=== PATIENT | male | born 1960 | race Caucasian/White ===

== ENCOUNTER 2018-05-13 11:07 | Inpatient (IN) | payer OTHER ==
[2018-05-13 13:11] VITALS: BMI 36.0
--- NOTE | 2018-05-13 17:19 | HP ---
CIWA Score - CIWA Score Nausea/Vomitin-Mild Nausea/No Vomiting Muscle Tremors: 3 Anxiety: 2 Agitation: 1-Slight > Activity Paroxysmal Sweats: 1-Minimal Palms Moist Orientation: 1-Uncertain about Date Tacttile Disturbances: 0-None Auditory Disturbances: 1-Very Mild Visual Disturbances: 1-Very Mild Sensitivity Headache: 1-Very Mild CIWA-Ar Total Score: 12 Admission ROS S - HPI Chief Complaint: WITHDRAWAL SYMPTOMS Allergies/Adverse Reactions: Allergies Allergy/AdvReac Type Severity Reaction Status Date / Time No Known Drug Allergies Allergy Verified 05/13/18 15:36 History of Present Illness: 57 Y.O. MAN WITH AN EXTENSIVE HISTORY OF ALCOHOL AND AMPHETAMINE DEPENDENCE IS HERE SEEKING DETOX. HIS LAST ADMISSION FOR DETOX WAS IN 2012. LONGEST PERIOD OF SOBRIETY HAS BEEN 1 YEAR. Exam Limitations: No Limitations - Ebola screening Have you traveled outside of the country in the last 21 days: No Have you had contact with anyone from an Ebola affected area: No Have you been sick,other than usual withdrawal symptoms: No Do you have a fever: No - Review of Systems Constitutional: Loss of Appetite, Night Sweats EENT: reports: No Symptoms Reported Respiratory: reports: No Symptoms reported Cardiac: reports: No Symptoms Reported GI: reports: No Symptoms Reported : reports: No Symptoms Reported Musculoskeletal: reports: No Symptoms Reported Integumentary: reports: No Symptoms Reported Neuro: reports: Tremors Endocrine: reports: No Symptoms Reported Hematology: reports: No Symptoms Reported Psychiatric: reports: Mood/Affect Appropiate, Depressed Other Systems: Reviewed and Negative Patient History - Patient Medical History Hx Anemia: No Hx Asthma: No Hx Chronic Obstructive Pulmonary Disease (COPD): No Hx Cancer: No Hx Cardiac Disorders: Yes (stent x3) Hx Congestive Heart Failure: No Hx Hypertension: Yes Hx Hypercholesterolemia: Yes Hx Pacemaker: No HX Cerebrovascular Accident: No Hx Seizures: No Hx Dementia: No Hx Diabetes: No Hx Gastrointestinal Disorders: No Hx Liver Disease: No Hx Genitourinary Disorders: No Hx Sexually Transmitted Disorders: No Hx Renal Disease (ESRD): No Hx Thyroid Disease: No Hx Human Immunodeficiency Virus (HIV): No Hx Hepatitis C: No Hx Depression: Yes Hx Suicide Attempt: No Hx Bipolar Disorder: Yes Hx Schizophrenia: No - Patient Surgical History Past Surgical History: Yes Hx Neurologic Surgery: No Hx Cataract Extraction: No Hx Cardiac Surgery: Yes (cardiac cath-3 stents) Hx Lung Surgery: No Hx Breast Surgery: No Hx Breast Biopsy: No Hx Abdominal Surgery: No Hx Appendectomy: No Hx Cholecystectomy: No Hx Genitourinary Surgery: No Hx Section: No Hx Orthopedic Surgery: No Anesthesia Reaction: No - PPD History Previous Implant?: Yes Documented Results: Negative w/proof Implanted On Prior [facility] Admission?: Yes Date: 01/31/13 Results: 0 mm PPD to be Administered?: Yes - Reproductive History Patient is a Female of Child Bearing Age (11 -55 yrs old): No - Smoking Cessation Smoking history: Never smoked Have you smoked in the past 12 months: No Hx Chewing Tobacco Use: No Initiated information on smoking cessation: No - Substance & Tx. History Hx Alcohol Use: Yes Hx Substance Use: Yes Substance Use Type: Alcohol Hx Substance Use Treatment: Yes (DETOX: 2013) - Substances Abused Alcohol-rum/beer Route: Oral Frequency: Daily Amount used: 2-3 pts./1-2 6 pks. Age of first use: 22 Date of Last Use: 05/13/18 Crystal meth Route: Smoking Frequency: 1-3 times last 30 days Amount used: $300 Age of first use: 56 Date of Last Use: 05/12/18 Family Disease History - Family Disease History Family Disease History: Heart Disease: Mother ( ), Other: Father (ETOH DEPENDENCE: ) Admission Physical Exam S - Vital Signs Vital Signs: Vital Signs - 24 hr 05/13/18 13:09 Temperature 97.6 F Pulse Rate 84 Respiratory 20 Rate Blood Pressure 139/82 - Physical General Appearance: Yes: Disheveled, Obese, Tremorous HEENTM: Yes: Hearing grossly Normal, Normocephalic, Normal Voice Respiratory: Yes: Chest Non-Tender, Lungs Clear, Normal Breath Sounds, No Respiratory Distress, No Accessory Muscle Use Neck: Yes: No masses,lesions,Nodules, Trachea in good position Breast: Yes: Breast Exam Deferred Cardiology: Yes: Regular Rhythm, Regular Rate Abdominal: Yes: Normal Bowel Sounds, Non Tender Genitourinary: Yes: Other (NO COMPLAINTS REPORTED) Back: Yes: Normal Inspection Musculoskeletal: Yes: full range of Motion, Gait Steady Extremities: Yes: Normal Capillary Refill, Normal Inspection, Normal Range of Motion, Non-Tender Neurological: Yes: Alert, Normal Mood/Affect, Normal Response Integumentary: Yes: Normal Color, Dry, Warm Lymphatic: Yes: Within Normal Limits - Diagnostic (1) Hypertension Current Visit: Yes Status: Chronic (2) Uncomplicated alcohol dependence Current Visit: Yes Status: Chronic (3) Amphetamine abuse Current Visit: Yes Status: Chronic (4) Coronary arteriosclerosis Current Visit: Yes Status: Acute (5) Hypercholesterolemia Current Visit: Yes Status: Chronic Cleared for Admission [facility] - Detox or Rehab [facility] Level of Care: Medically Managed Detox Regimen/Protocol: Librium [facility] Breath Alcohol Content Breath Alcohol Content: 0 Urine Drug Screen - Results Drug Screen Negative: No Urine Drug Screen Results: AMP-Amphetamines, MET-Methamphetamine, BZO- Benzodiazepines
[2018-05-13] MEDS ORDERED: chlordiazePOXIDE HCL 25 MG CAPSULE PO PRN (17:28)
[2018-05-13] MEDS ORDERED: MAGNESIUM CITRATE 300 ML BOTTLE PO PRN (17:28)
[2018-05-13] MEDS ORDERED: MAG HYDROX/AL HYDROX/SIMETH 30 ML UNIT-DOSE CUP PO PRN (17:28)
[2018-05-13] MEDS ORDERED: P-EPHED 60MG/TRIPROLIDI 2.5MG TABLET PO PRN (17:28)
[2018-05-13] MEDS ORDERED: ACETAMINOPHEN 325 MG TABLET (FP) PO PRN (17:28)
[2018-05-13] MEDS ORDERED: guaiFENesin/D-METHORPHAN HB 10 ML UNIT-DOSE CUPS PO PRN (17:28)
[2018-05-13] MEDS ORDERED: LOPERAMIDE HCL 2 MG CAPSULE PO PRN (17:28)
[2018-05-13] MEDS ORDERED: MAGNESIUM HYDROX 2400MG/30ML ORAL SUSPENSION 30 ML CUP PO PRN (17:28)
[2018-05-13] MEDS ORDERED: MENTHOL/PHENOL 1 EACH UD MM PRN (17:28)
[2018-05-13] MEDS ORDERED: chlordiazePOXIDE HCL 25 MG CAPSULE PO ONE (18:00)
[2018-05-13] MEDS: amLODIPine BESYLATE 5 MG TABLET (FP) PO SCH (19:14)
[2018-05-13] MEDS: ATORVASTATIN CA 40 MG TABLET (FP) PO SCH (22:22)
[2018-05-13] MEDS: THIAMINE HCL 100 MG TABLET (FP) PO SCH (22:22)
[2018-05-13] MEDS: chlordiazePOXIDE HCL 25 MG CAPSULE PO SCH (22:22)
[2018-05-14 03:05] LABS: URINE APPEARANCE TURBID; URINE BILIRUBIN NEGATIVE (<2.0 mg/dL); URINE COLOR YELLOW; URINE GLUCOSE (UA) NEGATIVE (NEGATIVE); URINE KETONE 1+ (NEGATIVE); URINE LEUK ESTERASE NEGATIVE (NEGATIVE); URINE NITRITE NEGATIVE (NEGATIVE)
[2018-05-14 03:09] LABS: URINE PROTEIN 2+ (NEGATIVE)
[2018-05-14 03:16] LABS: URINE BACTERIA MODERATE /hpf (NONE SEEN); URINE MUCUS RARE
[2018-05-14] MEDS: chlordiazePOXIDE HCL 25 MG CAPSULE PO SCH ×4 (05:43→22:27)
[2018-05-14] MEDS: IBUPROFEN 400 MG TABLET (FP) PO PRN ×2 (05:44→22:27)
[2018-05-14] MEDS: PRENATAL VITAMINS W/ FOLIC ACID TABLET (FP) PO SCH (10:24)
[2018-05-14] MEDS: amLODIPine BESYLATE 5 MG TABLET (FP) PO SCH (10:24)
[2018-05-14] MEDS: ASPIRIN COATED 81 MG TABLET.EC PO SCH (10:24)
--- NOTE | 2018-05-14 10:30 | EKG ---
Test Reason : Blood Pressure : / mmHG Vent. Rate : 066 BPM Atrial Rate : 066 BPM P-R Int : 138 ms QRS Dur : 110 ms QT Int : 402 ms P-R-T Axes : 025 -68 239 degrees QTc Int : 421 ms NORMAL SINUS RHYTHM WITH SINUS ARRHYTHMIA LEFT ANTERIOR FASCICULAR BLOCK POSSIBLE ANTERIOR INFARCT , AGE UNDETERMINED ABNORMAL ECG NO PREVIOUS ECGS AVAILABLE Confirmed by EAMON LANG MD ([id number]) on 05/14/2018 10:29:45 AM Referred By: Confirmed By:EAMON LANG MD
[2018-05-14 10:50] LABS: HEMATOCRIT 44.2 % (35.4-49); HEMOGLOBIN 14.7 GM/dL (11.7-16.9); MCH 27.9 pg (25.7-33.7); MCHC 33.3 g/dl (32.0-35.9); MEAN CELL VOLUME 83.7 fl (80-96); MEAN PLT VOLUME 9.8 fl (7.5-11.1); PLATELET COUNT 206 K/MM3 (134-434); RBC 5.28 M/mm3 (4.00-5.60); RDW 15.4 % (11.9-15.9); WHITE BLOOD COUNT 7.1 K/mm3 (4.0-10.0)
[2018-05-14 11:27] LABS: ALBUMIN 3.3 g/dl (3.4-5.0); ANION GAP 11 (8-16); BLOOD UREA NITROGEN 15 mg/dL (7-18); CALCIUM 8.4 mg/dL (8.5-10.1); CHLORIDE 103 mmol/L (98-107); CO2 30 mmol/L (21-32); CREATININE 0.8 mg/dL (0.7-1.3); GLUCOSE,RANDOM 79 mg/dL (74-106); POTASSIUM 3.4 mmol/L (3.5-5.1); SGOT/AST 38 U/L (15-37); SGPT/ALT 42 U/L (12-78); SODIUM 144 mmol/L (136-145)
[2018-05-14 11:28] LABS: ALK PHOS 73 U/L (45-117); BILIRUBIN,TOTAL 0.5 mg/dL (0.2-1.0); TOT PROT 6.8 g/dl (6.4-8.2)
--- NOTE | 2018-05-14 11:59 | PN ---
S CIWA - CIWA Score Nausea/Vomitin-No Nausea/No Vomiting Muscle Tremors: 4-Moderate,w/Arms Extend Anxiety: 4-Mod. Anxious/Guarded Agitation: 4-Moderately Restless Paroxysmal Sweats: 1-Minimal Palms Moist Orientation: 0-Oriented Tacttile Disturbances: 0-None Auditory Disturbances: 0-None Visual Disturbances: 0-None Headache: 0-None Present CIWA-Ar Total Score: 13 BHS Progress Note (SOAP) Subjective: ANXIETY,SWEATS,TREMORS," BODY HURTS", INTERMITTENT SLEEP. Objective: 05/14/18 11:57 Vital Signs 05/14/18 05/14/18 06:23 09:32 Temperature 96.7 F L 97.4 F L Pulse Rate 53 L 84 Respiratory 18 20 Rate Blood Pressure 112/67 137/86 Laboratory Tests 05/13/18 05/14/18 05/14/18 22:30 07:30 07:30 WBC 7.1 RBC 5.28 Hgb 14.7 Hct 44.2 MCV 83.7 MCH 27.9 D MCHC 33.3 RDW 15.4 Plt Count 206 MPV 9.8 Sodium 144 Potassium 3.4 L Chloride 103 Carbon Dioxide 30 Anion Gap 11 BUN 15 Creatinine 0.8 Creat Clearance w eGFR > 60 Random Glucose 79 D Calcium 8.4 L Total Bilirubin 0.5 AST 38 H ALT 42 Alkaline Phosphatase 73 Total Protein 6.8 Albumin 3.3 L Urine Color Yellow Urine Appearance Turbid Urine pH 5.0 Ur Specific [place] 1.026 Urine Protein 2+ H Urine Glucose (UA) Negative Urine Ketones 1+ H Urine Blood Negative Urine Nitrite Negative Urine Bilirubin Negative Urine Urobilinogen 2.0 Ur Leukocyte Esterase Negative Urine WBC (Auto) 60 Urine RBC (Auto) None Urine Bacteria Moderate Urine Mucus Rare K+ =3.4 UA NOTED Assessment: 05/14/18 11:58 WITHDRAWAL SX Plan: CONTINUE DETOX MOTRIN FOR BODY ACHES INCREASE PO FLUIDS REPEAT UA: UC TODAY
[2018-05-14] MEDS ORDERED: POTASSIUM CHLORIDE ORAL LIQUID 20 MEQ/15 ML PO ONE (12:07)
--- NOTE | 2018-05-14 12:28 | CONSULT ---
[facility] Psychiatric Consult - Data Date of interview: 05/14/18 Admission source: [facility] Identifying data: Patient is a 57 year old male, , father of two, currently living with a friend, and is supported by [facility]. This is patient's first admission to detox at [facility]. Pt. admitted to for alcohol and amphetamine depenedence. Substance Abuse History: Smoking Cessation. Smoking history: Never smoked. Have you smoked in the past 12 months: No. Hx Chewing Tobacco Use: No. Initiated information on smoking cessation: No. - Substance & Tx. History. Hx Alcohol Use: Yes. Hx Substance Use: Yes. Substance Use Type: Alcohol. Hx Substance Use Treatment: Yes (DETOX: 2013). - Substances Abused. Alcohol- rum/beer. Route: Oral. Frequency: Daily. Amount used: 2-3 pts./1-2 6 pks. Age of first use: 22. Date of Last Use: 05/13/18. Crystal meth. Route: Smoking. Frequency: 1-3 times last 30 days. Amount used: $300. Age of first use: 56. Date of Last Use: 05/12/18 Medical History: cardiac cath-3 stents Psychiatric History: Patient reports multiple psychiatric hospitalizations, most recently 1.5 years ago at [facility] for depression. Pt. is also known to [facility]. Pt. reports many deaths in his family(2 brothers, father and mother) which has contributed to his depression. Pt. denies h/o OPD. States while hospitalized at [facility] he was prescribed zoloft (unknown dose) although has not accepted psychotrophic medications in approximately 6-8 months. Pt. denies h/o suicide attempt. Physical/Sexual Abuse/Trauma History: Denies. Mental Status Exam - Mental Status Exam Alert and Oriented to: Time, Place, Person Cognitive Function: Good Patient Appearance: Well Groomed Mood: Hopeful, Euthymic Affect: Mood Congruent Patient Behavior: Appropriate, Cooperative Speech Pattern: Appropriate Voice Loudness: Normal Thought Process: Intact, Goal Oriented Thought Disorder: Not Present Hallucinations: Denies Suicidal Ideation: Denies Homicidal Ideation: Denies Insight/Judgement: Poor Sleep: Fair Appetite: Fair Muscle strength/Tone: Normal Gait/Station: Normal Psychiatric Findings - Problem List ([place] 1, 2,3) (1) Alcohol dependence Current Visit: Yes Status: Acute (2) Substance induced mood disorder Current Visit: Yes Status: Acute (3) Amphetamine abuse Current Visit: Yes Status: Chronic - Initial Treatment Plan Initial Treatment Plan: Psychoeducation provided. Detoxification in progress. Observation.
[2018-05-14 19:33] LABS: URINE APPEARANCE SLCLOUDY; URINE BILIRUBIN NEGATIVE (<2.0 mg/dL); URINE COLOR YELLOW; URINE GLUCOSE (UA) NEGATIVE (NEGATIVE); URINE KETONE NEGATIVE (NEGATIVE); URINE LEUK ESTERASE NEGATIVE (NEGATIVE); URINE NITRITE NEGATIVE (NEGATIVE); URINE PROTEIN NEGATIVE (NEGATIVE); URINE UROBILINOGEN NEGATIVE mg/dL (0.2-1.0)
[2018-05-14] MEDS: ATORVASTATIN CA 40 MG TABLET (FP) PO SCH (22:27)
[2018-05-14] MEDS: POTASSIUM CHLORIDE ORAL LIQUID 20 MEQ/15 ML PO SCH (22:27)
[2018-05-14] MEDS: THIAMINE HCL 100 MG TABLET (FP) PO SCH (22:27)
[2018-05-15] MEDS: chlordiazePOXIDE HCL 25 MG CAPSULE PO SCH ×2 (05:12→10:37)
[2018-05-15] MEDS: IBUPROFEN 400 MG TABLET (FP) PO PRN (05:12)
[2018-05-15] MEDS: PRENATAL VITAMINS W/ FOLIC ACID TABLET (FP) PO SCH (10:37)
[2018-05-15] MEDS: POTASSIUM CHLORIDE ORAL LIQUID 20 MEQ/15 ML PO SCH ×2 (10:37→22:33)
[2018-05-15] MEDS: amLODIPine BESYLATE 5 MG TABLET (FP) PO SCH (10:37)
[2018-05-15] MEDS: ASPIRIN COATED 81 MG TABLET.EC PO SCH (10:37)
--- NOTE | 2018-05-15 12:11 | PN ---
[facility] CIWA - CIWA Score Nausea/Vomitin-No Nausea/No Vomiting Muscle Tremors: 4-Moderate,w/Arms Extend Anxiety: 4-Mod. Anxious/Guarded Agitation: 4-Moderately Restless Paroxysmal Sweats: 1-Minimal Palms Moist Orientation: 0-Oriented Tacttile Disturbances: 0-None Auditory Disturbances: 0-None Visual Disturbances: 0-None Headache: 0-None Present CIWA-Ar Total Score: 13 S Progress Note (SOAP) Subjective: PT SEEN IN LAYING IN BED, ANXIETY, FATIGUE. NAD. Objective: 05/15/18 12:09 Vital Signs 05/15/18 05/15/18 05/15/18 06:06 06:30 09:21 Temperature 97.2 F L 97 F L Pulse Rate 69 97 H Respiratory 18 18 18 Rate Blood Pressure 112/61 132/85 Laboratory Tests 05/13/18 05/14/18 05/14/18 22:30 07:30 07:30 WBC 7.1 RBC 5.28 Hgb 14.7 Hct 44.2 MCV 83.7 MCH 27.9 D MCHC 33.3 RDW 15.4 Plt Count 206 MPV 9.8 Sodium 144 Potassium 3.4 L Chloride 103 Carbon Dioxide 30 Anion Gap 11 BUN 15 Creatinine 0.8 Creat Clearance w eGFR > 60 Random Glucose 79 D Calcium 8.4 L Total Bilirubin 0.5 AST 38 H ALT 42 Alkaline Phosphatase 73 Total Protein 6.8 Albumin 3.3 L Urine Color Yellow Urine Appearance Turbid Urine pH 5.0 Ur Specific [place] 1.026 Urine Protein 2+ H Urine Glucose (UA) Negative Urine Ketones 1+ H Urine Blood Negative Urine Nitrite Negative Urine Bilirubin Negative Urine Urobilinogen 2.0 Ur Leukocyte Esterase Negative Urine WBC (Auto) 60 Urine RBC (Auto) None Urine Bacteria Moderate Urine Mucus Rare RPR Titer 05/14/18 05/14/18 07:30 15:33 WBC RBC Hgb Hct MCV MCH MCHC RDW Plt Count MPV Sodium Potassium Chloride Carbon Dioxide Anion Gap BUN Creatinine Creat Clearance w eGFR Random Glucose Calcium Total Bilirubin AST ALT Alkaline Phosphatase Total Protein Albumin Urine Color Yellow Urine Appearance Slcloudy Urine pH 5.0 Ur Specific [place] 1.014 Urine Protein Negative Urine Glucose (UA) Negative Urine Ketones Negative Urine Blood Negative Urine Nitrite Negative Urine Bilirubin Negative Urine Urobilinogen Negative Ur Leukocyte Esterase Negative Urine WBC (Auto) Urine RBC (Auto) Urine Bacteria Urine Mucus RPR Titer Nonreactive REPEAT UA WNL Assessment: 05/15/18 12:10 WITHDRAWAL SX Plan: CONTINUE DETOX UC RESULT PENDING
--- NOTE | 2018-05-15 16:50 | EKG ---
Test Reason : Blood Pressure : / mmHG Vent. Rate : 057 BPM Atrial Rate : 057 BPM P-R Int : 128 ms QRS Dur : 114 ms QT Int : 444 ms P-R-T Axes : 027 -70 -71 degrees QTc Int : 432 ms SINUS BRADYCARDIA WITH SINUS ARRHYTHMIA LEFT ANTERIOR FASCICULAR BLOCK POSSIBLE ANTERIOR INFARCT (CITED ON OR BEFORE 13-MAY-2018) T WAVE ABNORMALITY, CONSIDER INFERIOR ISCHEMIA ABNORMAL ECG WHEN COMPARED WITH ECG OF 13-MAY-2018 18:59, SERIAL CHANGES OF ANTERIOR INFARCT PRESENT Confirmed by YOVANY PINEDA MD ([id number]) on 05/15/2018 3:52:28 PM Referred By: Confirmed By:YOVANY PINEDA MD
[2018-05-15] MEDS: chlordiazePOXIDE 5 MG CAPSULE PO SCH ×2 (17:31→22:34)
[2018-05-15] MEDS ORDERED: ATORVASTATIN CA 20 MG TABLET (FP) ONE (21:32)
[2018-05-15] MEDS: ATORVASTATIN CA 40 MG TABLET (FP) PO SCH (22:34)
[2018-05-15] MEDS ORDERED: chlordiazePOXIDE 5 MG CAPSULE PO SCH (23:00)
[2018-05-15] MEDS: THIAMINE HCL 100 MG TABLET (FP) PO SCH (23:06)
[2018-05-16] MEDS: chlordiazePOXIDE HCL 10 MG CAPSULE PO SCH ×2 (05:40→10:39)
[2018-05-16] MEDS: POTASSIUM CHLORIDE ORAL LIQUID 20 MEQ/15 ML PO SCH ×2 (10:39→21:14)
[2018-05-16] MEDS: ASPIRIN COATED 81 MG TABLET.EC PO SCH (10:39)
[2018-05-16] MEDS: PRENATAL VITAMINS W/ FOLIC ACID TABLET (FP) PO SCH (10:39)
[2018-05-16] MEDS: amLODIPine BESYLATE 5 MG TABLET (FP) PO SCH (10:39)
[2018-05-16] MEDS ORDERED: chlordiazePOXIDE HCL 10 MG CAPSULE PO SCH ×2 (11:00→23:00)
--- NOTE | 2018-05-16 12:35 | PN ---
S Progress Note (SOAP) Subjective: DETOX COMPLETED. ALERT O X 3. NAD. PT STATES HE HAS PRIMARY CARE WITH [facility]. REFERRED TO REHAB TODAY AT [address] Objective: 05/16/18 12:33 Vital Signs 05/16/18 05/16/18 06:06 09:37 Temperature 97.1 F L 97.2 F L Pulse Rate 56 L 80 Respiratory 18 18 Rate Blood Pressure 124/76 131/91 Laboratory Tests 05/13/18 05/14/18 05/14/18 22:30 07:30 07:30 WBC 7.1 RBC 5.28 Hgb 14.7 Hct 44.2 MCV 83.7 MCH 27.9 D MCHC 33.3 RDW 15.4 Plt Count 206 MPV 9.8 Sodium 144 Potassium 3.4 L Chloride 103 Carbon Dioxide 30 Anion Gap 11 BUN 15 Creatinine 0.8 Creat Clearance w eGFR > 60 Random Glucose 79 D Calcium 8.4 L Total Bilirubin 0.5 AST 38 H ALT 42 Alkaline Phosphatase 73 Total Protein 6.8 Albumin 3.3 L Urine Color Yellow Urine Appearance Turbid Urine pH 5.0 Ur Specific [place] 1.026 Urine Protein 2+ H Urine Glucose (UA) Negative Urine Ketones 1+ H Urine Blood Negative Urine Nitrite Negative Urine Bilirubin Negative Urine Urobilinogen 2.0 Ur Leukocyte Esterase Negative Urine WBC (Auto) 60 Urine RBC (Auto) None Urine Bacteria Moderate Urine Mucus Rare RPR Titer 05/14/18 05/14/18 07:30 15:33 WBC RBC Hgb Hct MCV MCH MCHC RDW Plt Count MPV Sodium Potassium Chloride Carbon Dioxide Anion Gap BUN Creatinine Creat Clearance w eGFR Random Glucose Calcium Total Bilirubin AST ALT Alkaline Phosphatase Total Protein Albumin Urine Color Yellow Urine Appearance Slcloudy Urine pH 5.0 Ur Specific [place] 1.014 Urine Protein Negative Urine Glucose (UA) Negative Urine Ketones Negative Urine Blood Negative Urine Nitrite Negative Urine Bilirubin Negative Urine Urobilinogen Negative Ur Leukocyte Esterase Negative Urine WBC (Auto) Urine RBC (Auto) Urine Bacteria Urine Mucus RPR Titer Nonreactive Assessment: 05/16/18 12:33 MEDICALLY STABLE Plan: DIRECT TRANSFER TODAY TO REHAB.
--- NOTE | 2018-05-16 12:37 | DS ---
[facility] Detox Discharge Summary Admission Date: 05/13/18 Discharge Date: 05/16/18 - History Present History: Alcohol Dependence, Cocaine Dependence Additional Comments: DETOX COMPLETED. ALERT O X 3. NAD. FOLLOW UP WITH PCP AT [facility] NEEDED. Pertinent Past History: PLEASE SEE DX BELOW - Physical Exam Results Vital Signs: Vital Signs Temperature 97.2 F L 05/16/18 09:37 Pulse Rate 80 05/16/18 09:37 Respiratory Rate 18 05/16/18 09:37 Blood Pressure 131/91 05/16/18 09:37 O2 Sat by Pulse Oximetry (%) Pertinent Admission Physical Exam Findings: WITHDRAWAL SX Laboratory Tests 05/13/18 05/14/18 05/14/18 22:30 07:30 07:30 WBC 7.1 RBC 5.28 Hgb 14.7 Hct 44.2 MCV 83.7 MCH 27.9 D MCHC 33.3 RDW 15.4 Plt Count 206 MPV 9.8 Sodium 144 Potassium 3.4 L Chloride 103 Carbon Dioxide 30 Anion Gap 11 BUN 15 Creatinine 0.8 Creat Clearance w eGFR > 60 Random Glucose 79 D Calcium 8.4 L Total Bilirubin 0.5 AST 38 H ALT 42 Alkaline Phosphatase 73 Total Protein 6.8 Albumin 3.3 L Urine Color Yellow Urine Appearance Turbid Urine pH 5.0 Ur Specific [place] 1.026 Urine Protein 2+ H Urine Glucose (UA) Negative Urine Ketones 1+ H Urine Blood Negative Urine Nitrite Negative Urine Bilirubin Negative Urine Urobilinogen 2.0 Ur Leukocyte Esterase Negative Urine WBC (Auto) 60 Urine RBC (Auto) None Urine Bacteria Moderate Urine Mucus Rare RPR Titer 05/14/18 05/14/18 07:30 15:33 WBC RBC Hgb Hct MCV MCH MCHC RDW Plt Count MPV Sodium Potassium Chloride Carbon Dioxide Anion Gap BUN Creatinine Creat Clearance w eGFR Random Glucose Calcium Total Bilirubin AST ALT Alkaline Phosphatase Total Protein Albumin Urine Color Yellow Urine Appearance Slcloudy Urine pH 5.0 Ur Specific [place] 1.014 Urine Protein Negative Urine Glucose (UA) Negative Urine Ketones Negative Urine Blood Negative Urine Nitrite Negative Urine Bilirubin Negative Urine Urobilinogen Negative Ur Leukocyte Esterase Negative Urine WBC (Auto) Urine RBC (Auto) Urine Bacteria Urine Mucus RPR Titer Nonreactive Microbiology 05/14/18 15:33 Urine - Urine Clean Catch Urine Culture - Final NO GROWTH OBTAINED - Treatment Hospital Course: Detox Protocol Followed, Detoxed Safely, Responded well, Discharged Condition Good, Rehab Referral Accepted Patient has Accepted a Rehab Referral to: [address] - Medication Discharge Medications: Ambulatory Orders Amlodipine Besylate [Norvasc -] 5 mg PO DAILY 03/06/13 Aspirin Coated [Ecotrin -] 81 mg PO DAILY 03/06/13 Atorvastatin Ca [Lipitor] 40 mg PO HS 03/06/13 - Diagnosis (1) Coronary arteriosclerosis Current Visit: Yes Status: Chronic (2) Hypercholesterolemia Current Visit: Yes Status: Chronic (3) Cocaine dependence Current Visit: Yes Status: Active (4) Essential hypertension Current Visit: Yes Status: Acute (5) Alcohol dependence with uncomplicated withdrawal Current Visit: Yes Status: Acute - AMA Did Patient Leave Against Medical Advice: No
[2018-05-16] MEDS: ATORVASTATIN CA 40 MG TABLET (FP) PO SCH (21:14)
[2018-05-16] MEDS: THIAMINE HCL 100 MG TABLET (FP) PO SCH (21:14)
[2018-05-17] MEDS ORDERED: PT OWN MED DRAWER 7, Y5N ONE ×2 (08:17→20:24)
[2018-05-17] MEDS: ASPIRIN COATED 81 MG TABLET.EC PO SCH (09:24)
[2018-05-17] MEDS: PRENATAL VITAMINS W/ FOLIC ACID TABLET (FP) PO SCH (09:24)
[2018-05-17] MEDS: amLODIPine BESYLATE 5 MG TABLET (FP) PO SCH (09:24)
[2018-05-17] MEDS: POTASSIUM CHLORIDE ORAL LIQUID 20 MEQ/15 ML PO SCH ×2 (10:55→22:01)
[2018-05-17] MEDS: THIAMINE HCL 100 MG TABLET (FP) PO SCH (22:01)
[2018-05-17] MEDS: ATORVASTATIN CA 40 MG TABLET (FP) PO SCH (22:02)
[2018-05-18] MEDS ORDERED: PT OWN MED DRAWER 7, Y5N ONE (08:27)
[2018-05-18] MEDS: POTASSIUM CHLORIDE ORAL LIQUID 20 MEQ/15 ML PO SCH ×2 (09:24→21:09)
[2018-05-18] MEDS: amLODIPine BESYLATE 5 MG TABLET (FP) PO SCH (09:24)
[2018-05-18] MEDS: ASPIRIN COATED 81 MG TABLET.EC PO SCH (09:24)
[2018-05-18] MEDS: PRENATAL VITAMINS W/ FOLIC ACID TABLET (FP) PO SCH (09:24)
[2018-05-18] MEDS: THIAMINE HCL 100 MG TABLET (FP) PO SCH (21:08)
[2018-05-18] MEDS: ATORVASTATIN CA 40 MG TABLET (FP) PO SCH (21:08)
--- NOTE | 2018-05-19 06:21 | HP ---
Psychiatrist Admission - Data Date of interview: 05/19/18 Admission source: 3N Identifying data: This is the second [facility] admission for this 57 years old male, father of 2 sons, unemployed on SSD, living with a friend Medical History: Significant for hypertension, dyslipidemia, coronary artery disease/myocardial infarction with 3 stents placement Psychiatric History: Patient that his first psychiatric contact was 4 years ago when he was admitted to [facility], diagnosed with depression and treated with Zoloft. Reports 2 subsequent psychiatric admissions to [facility] and most recently 1.5 years ago to [facility] for depression. Pt. reports that depression stemmed from many deaths in his family( 2 brothers, father and mother). Pt reports that he never followed up with OPD care but gets medication through ED. Reports that he last took medication(Zoloft ) 2 months ago. Denies previous suicide attempt. At present, reports feeling anxious and sleeping poorly Physical/Sexual Abuse/Trauma History: Denies history of emotional, physical or sexual abuse as well as DV relationship. No service Additional Comment: Reports history of one previous midemeanor arrest 20 years ago on charges of [employer] Vital Signs: Vital Signs - 24 hr 05/18/18 05/18/18 05/19/18 07:08 10:00 00:30 Temperature 98.1 F Pulse Rate 62 80 Respiratory 18 18 18 Rate Blood Pressure 150/93 131/85 05/19/18 03:30 Temperature Pulse Rate Respiratory 18 Rate Blood Pressure Allergies/Adverse Reactions: Allergies Allergy/AdvReac Type Severity Reaction Status Date / Time No Known Drug Allergies Allergy Verified 05/13/18 15:36 Date of last physical exam: 05/13/18 Concur with the findings of this exam: Yes - Substance Abuse/Tx History Hx Alcohol Use: Yes Hx Substance Use: Yes (Began crystal meth at 56, consumes $300 occ. Last used on 05/12/18) Substance Use Type: Alcohol (Started drinking alcohol at age 22, consumes 2-3 pints of rum & 1-2x 6pk of beer daily. Last drank on 05/13/18) Hx Substance Use Treatment: Yes (2 previous inpt detox & one inpt rehab @ [facility]) Mental Status Exam - Mental Status Exam Alert and Oriented to: Time, Place, Person Cognitive Function: Fair Patient Appearance: Well Groomed Mood: Anxious Affect: Appropriate Patient Behavior: Cooperative Speech Pattern: Clear Voice Loudness: Normal Thought Process: Intact, Goal Oriented Thought Disorder: Not Present Hallucinations: Denies Suicidal Ideation: Denies Homicidal Ideation: Denies Insight/Judgement: Fair Sleep: Poorly Appetite: Good Muscle strength/Tone: Normal Gait/Station: Normal Psychiatric Findings - Problem List ([place] 1, 2,3) (1) Alcohol dependence Current Visit: Yes Status: Acute (2) Amphetamine abuse Current Visit: Yes Status: Acute (3) MDD (major depressive disorder), recurrent episode, moderate Current Visit: Yes Status: Chronic (4) Substance-induced anxiety disorder Current Visit: Yes Status: Acute (5) Substance-induced sleep disorder Current Visit: Yes Status: Acute (6) Essential hypertension Current Visit: Yes Status: Chronic (7) Hypercholesterolemia Current Visit: Yes Status: Chronic (8) Coronary arteriosclerosis Current Visit: Yes Status: Chronic - Initial Treatment Plan Initial Treatment Plan: 1) Start Zoloft 50 mg po daily and Melatonin 5 mg po HS prn for insomnia. 2) Monitor progress
[2018-05-19] MEDS: ASPIRIN COATED 81 MG TABLET.EC PO SCH (10:00)
[2018-05-19] MEDS: amLODIPine BESYLATE 5 MG TABLET (FP) PO SCH (10:00)
[2018-05-19] MEDS: PRENATAL VITAMINS W/ FOLIC ACID TABLET (FP) PO SCH (10:00)
[2018-05-19] MEDS ORDERED: PT OWN MED DRAWER 7, Y5N ONE (10:01)
[2018-05-19] MEDS: POTASSIUM CHLORIDE ORAL LIQUID 20 MEQ/15 ML PO SCH (10:01)
[2018-05-19] MEDS: SERTRALINE HCL 50 MG TABLET (FP) PO SCH (11:35)
[2018-05-19] MEDS: THIAMINE HCL 100 MG TABLET (FP) PO SCH (21:20)
[2018-05-19] MEDS: MELATONIN 5 MG TABLETS PO PRN (21:21)
[2018-05-19] MEDS: ATORVASTATIN CA 40 MG TABLET (FP) PO SCH (21:21)
[2018-05-20] MEDS: ASPIRIN COATED 81 MG TABLET.EC PO SCH (09:37)
[2018-05-20] MEDS: SERTRALINE HCL 50 MG TABLET (FP) PO SCH (09:37)
[2018-05-20] MEDS: PRENATAL VITAMINS W/ FOLIC ACID TABLET (FP) PO SCH (09:37)
[2018-05-20] MEDS: amLODIPine BESYLATE 5 MG TABLET (FP) PO SCH (09:37)
[2018-05-20 15:31] LABS: CHLORIDE 103 mmol/L (98-107); POTASSIUM 3.9 mmol/L (3.5-5.1); SODIUM 142 mmol/L (136-145)
--- NOTE | 2018-05-20 15:33 | PN ---
[facility] Progress Note Note: Vital Signs (72 hours) 05/18/18 05/18/18 05/18/18 00:30 03:29 07:08 Temperature 98.1 F Pulse Rate 62 Respiratory 18 18 18 Rate Blood Pressure 150/93 05/18/18 05/19/18 05/19/18 10:00 00:30 03:30 Temperature Pulse Rate 80 Respiratory 18 18 18 Rate Blood Pressure 131/85 05/19/18 05/19/18 05/20/18 06:48 10:00 00:30 Temperature 97.5 F L Pulse Rate 68 70 Respiratory 18 18 18 Rate Blood Pressure 149/94 147/91 05/20/18 05/20/18 05/20/18 03:30 06:43 10:00 Temperature 97.8 F Pulse Rate 76 71 Respiratory 18 18 18 Rate Blood Pressure 156/87 144/94 Patient reports feeling concern regarding BP. Reports while out patient was on two BP meds but does not reall the name of the second med. As per patient diastolic is not his normal baseline ( to high). Patient d/o OB, [place], CP, vertigo. Patient AOx3 no distress no edema no JVD no adventitious breath sounds full ROM HTN Plan: Will increase Norvasc from 5mg to 10 mg in AM will continue to monitor BP Patient was educated on the importance of lifestyle modifications such as weight loss, healthy BMI, abstinence from illicit substance, alcohol, and low sodium diet. Patient advised to follow up with PMD. Patient to verbalize understanding.
[2018-05-20 15:38] LABS: ANION GAP 10 (8-16); BLOOD UREA NITROGEN 11 mg/dL (7-18); CO2 29 mmol/L (21-32); CREATININE 0.8 mg/dL (0.7-1.3); GLUCOSE,RANDOM 141 mg/dL (74-106)
[2018-05-20] MEDS: hydrOXYzine PAMOATE 50 MG CAPSULE (FP) PO PRN (16:03)
[2018-05-20] MEDS: ATORVASTATIN CA 40 MG TABLET (FP) PO SCH (22:11)
[2018-05-20] MEDS: THIAMINE HCL 100 MG TABLET (FP) PO SCH (22:11)
[2018-05-21] MEDS: PRENATAL VITAMINS W/ FOLIC ACID TABLET (FP) PO SCH (09:45)
[2018-05-21] MEDS: amLODIPine BESYLATE 10 MG TABLET (FP) PO SCH (09:45)
[2018-05-21] MEDS: ASPIRIN COATED 81 MG TABLET.EC PO SCH (09:46)
[2018-05-21] MEDS: SERTRALINE HCL 50 MG TABLET (FP) PO SCH (09:46)
[2018-05-21] MEDS: hydrOXYzine PAMOATE 50 MG CAPSULE (FP) PO PRN (14:07)
[2018-05-21] MEDS: MELATONIN 5 MG TABLETS PO PRN (21:36)
[2018-05-21] MEDS: THIAMINE HCL 100 MG TABLET (FP) PO SCH (21:36)
[2018-05-21] MEDS: ATORVASTATIN CA 40 MG TABLET (FP) PO SCH (21:36)
[2018-05-22] MEDS: ASPIRIN COATED 81 MG TABLET.EC PO SCH (09:49)
[2018-05-22] MEDS: amLODIPine BESYLATE 10 MG TABLET (FP) PO SCH (09:49)
[2018-05-22] MEDS: SERTRALINE HCL 50 MG TABLET (FP) PO SCH (09:49)
[2018-05-22] MEDS: PRENATAL VITAMINS W/ FOLIC ACID TABLET (FP) PO SCH (09:49)
[2018-05-22] MEDS: ATORVASTATIN CA 40 MG TABLET (FP) PO SCH (21:11)
[2018-05-22] MEDS: THIAMINE HCL 100 MG TABLET (FP) PO SCH (21:11)
[2018-05-22] MEDS: MELATONIN 5 MG TABLETS PO PRN (21:11)
[2018-05-23] MEDS: ASPIRIN COATED 81 MG TABLET.EC PO SCH (09:48)
[2018-05-23] MEDS: amLODIPine BESYLATE 10 MG TABLET (FP) PO SCH (09:48)
[2018-05-23] MEDS: SERTRALINE HCL 50 MG TABLET (FP) PO SCH (09:48)
[2018-05-23] MEDS: PRENATAL VITAMINS W/ FOLIC ACID TABLET (FP) PO SCH (09:48)
[2018-05-23] MEDS: hydrOXYzine PAMOATE 50 MG CAPSULE (FP) PO PRN (16:52)
[2018-05-23] MEDS: ATORVASTATIN CA 40 MG TABLET (FP) PO SCH (21:31)
[2018-05-23] MEDS: THIAMINE HCL 100 MG TABLET (FP) PO SCH (21:31)
[2018-05-23] MEDS: MELATONIN 5 MG TABLETS PO PRN (21:31)
[2018-05-24] MEDS: amLODIPine BESYLATE 10 MG TABLET (FP) PO SCH (09:44)
[2018-05-24] MEDS: ASPIRIN COATED 81 MG TABLET.EC PO SCH (09:44)
[2018-05-24] MEDS: PRENATAL VITAMINS W/ FOLIC ACID TABLET (FP) PO SCH (09:44)
[2018-05-24] MEDS: SERTRALINE HCL 50 MG TABLET (FP) PO SCH (09:44)
[2018-05-24] MEDS: hydrOXYzine PAMOATE 50 MG CAPSULE (FP) PO PRN ×2 (14:55→22:00)
[2018-05-24] MEDS: ATORVASTATIN CA 40 MG TABLET (FP) PO SCH (21:59)
[2018-05-24] MEDS: THIAMINE HCL 100 MG TABLET (FP) PO SCH (22:00)
[2018-05-24] MEDS: MELATONIN 5 MG TABLETS PO PRN (22:00)
[2018-05-25] MEDS: PRENATAL VITAMINS W/ FOLIC ACID TABLET (FP) PO SCH (09:38)
[2018-05-25] MEDS: SERTRALINE HCL 50 MG TABLET (FP) PO SCH (09:38)
[2018-05-25] MEDS: amLODIPine BESYLATE 10 MG TABLET (FP) PO SCH (09:39)
[2018-05-25] MEDS: ASPIRIN COATED 81 MG TABLET.EC PO SCH (09:39)
[2018-05-25] MEDS: ATORVASTATIN CA 40 MG TABLET (FP) PO SCH (21:38)
[2018-05-25] MEDS: THIAMINE HCL 100 MG TABLET (FP) PO SCH (21:39)
[2018-05-25] MEDS: MELATONIN 5 MG TABLETS PO PRN (21:40)
[2018-05-25] MEDS: hydrOXYzine PAMOATE 50 MG CAPSULE (FP) PO PRN (21:40)
[2018-05-26] MEDS: SERTRALINE HCL 50 MG TABLET (FP) PO SCH (10:00)
[2018-05-26] MEDS: ASPIRIN COATED 81 MG TABLET.EC PO SCH (10:00)
[2018-05-26] MEDS: PRENATAL VITAMINS W/ FOLIC ACID TABLET (FP) PO SCH (10:00)
[2018-05-26] MEDS: amLODIPine BESYLATE 10 MG TABLET (FP) PO SCH (10:00)
[2018-05-26] MEDS: MELATONIN 5 MG TABLETS PO PRN (21:12)
[2018-05-26] MEDS: THIAMINE HCL 100 MG TABLET (FP) PO SCH (21:12)
[2018-05-26] MEDS: ATORVASTATIN CA 40 MG TABLET (FP) PO SCH (21:12)
[2018-05-27] MEDS: SERTRALINE HCL 50 MG TABLET (FP) PO SCH (09:54)
[2018-05-27] MEDS: ASPIRIN COATED 81 MG TABLET.EC PO SCH (09:54)
[2018-05-27] MEDS: amLODIPine BESYLATE 10 MG TABLET (FP) PO SCH (09:54)
[2018-05-27] MEDS: PRENATAL VITAMINS W/ FOLIC ACID TABLET (FP) PO SCH (09:54)
[2018-05-27] MEDS: ATORVASTATIN CA 40 MG TABLET (FP) PO SCH (21:13)
[2018-05-27] MEDS: MELATONIN 5 MG TABLETS PO PRN (21:13)
[2018-05-27] MEDS: THIAMINE HCL 100 MG TABLET (FP) PO SCH (21:13)
[2018-05-28] MEDS: ASPIRIN COATED 81 MG TABLET.EC PO SCH (09:43)
[2018-05-28] MEDS: SERTRALINE HCL 50 MG TABLET (FP) PO SCH (09:43)
[2018-05-28] MEDS: amLODIPine BESYLATE 10 MG TABLET (FP) PO SCH (09:43)
[2018-05-28] MEDS: PRENATAL VITAMINS W/ FOLIC ACID TABLET (FP) PO SCH (09:43)
[2018-05-28] MEDS: IBUPROFEN 400 MG TABLET (FP) PO PRN (16:57)
[2018-05-28] MEDS: THIAMINE HCL 100 MG TABLET (FP) PO SCH (21:22)
[2018-05-28] MEDS: ATORVASTATIN CA 40 MG TABLET (FP) PO SCH (21:22)
[2018-05-28] MEDS: MELATONIN 5 MG TABLETS PO PRN (21:23)
[2018-05-29] MEDS: SERTRALINE HCL 50 MG TABLET (FP) PO SCH (09:35)
[2018-05-29] MEDS: PRENATAL VITAMINS W/ FOLIC ACID TABLET (FP) PO SCH (09:35)
[2018-05-29] MEDS: amLODIPine BESYLATE 10 MG TABLET (FP) PO SCH (09:35)
[2018-05-29] MEDS: ASPIRIN COATED 81 MG TABLET.EC PO SCH (09:35)
[2018-05-29] MEDS: IBUPROFEN 400 MG TABLET (FP) PO PRN ×2 (13:50→21:44)
[2018-05-29] MEDS: THIAMINE HCL 100 MG TABLET (FP) PO SCH (21:44)
[2018-05-29] MEDS: ATORVASTATIN CA 40 MG TABLET (FP) PO SCH (21:44)
[2018-05-29] MEDS: MELATONIN 5 MG TABLETS PO PRN (21:45)
[2018-05-30] MEDS: PRENATAL VITAMINS W/ FOLIC ACID TABLET (FP) PO SCH (09:55)
[2018-05-30] MEDS: SERTRALINE HCL 50 MG TABLET (FP) PO SCH (09:55)
[2018-05-30] MEDS: amLODIPine BESYLATE 10 MG TABLET (FP) PO SCH (09:55)
[2018-05-30] MEDS: ASPIRIN COATED 81 MG TABLET.EC PO SCH (09:56)
[2018-05-30] MEDS: THIAMINE HCL 100 MG TABLET (FP) PO SCH (21:13)
[2018-05-30] MEDS: MELATONIN 5 MG TABLETS PO PRN (21:13)
[2018-05-30] MEDS: IBUPROFEN 400 MG TABLET (FP) PO PRN (21:14)
[2018-05-30] MEDS: ATORVASTATIN CA 40 MG TABLET (FP) PO SCH (21:23)
[2018-05-31] MEDS: SERTRALINE HCL 50 MG TABLET (FP) PO SCH (09:22)
[2018-05-31] MEDS: PRENATAL VITAMINS W/ FOLIC ACID TABLET (FP) PO SCH (09:22)
[2018-05-31] MEDS: ASPIRIN COATED 81 MG TABLET.EC PO SCH (09:22)
[2018-05-31] MEDS: amLODIPine BESYLATE 10 MG TABLET (FP) PO SCH (09:22)
[2018-05-31] MEDS: hydrOXYzine PAMOATE 50 MG CAPSULE (FP) PO PRN ×2 (14:20→21:25)
[2018-05-31] MEDS: IBUPROFEN 400 MG TABLET (FP) PO PRN ×2 (14:20→21:25)
[2018-05-31] MEDS: ATORVASTATIN CA 40 MG TABLET (FP) PO SCH (21:24)
[2018-05-31] MEDS: THIAMINE HCL 100 MG TABLET (FP) PO SCH (21:24)
[2018-06-01] MEDS ORDERED: PT OWN MED DRAWER 7, Y5N ONE (08:31)
[2018-06-01] MEDS: amLODIPine BESYLATE 10 MG TABLET (FP) PO SCH (09:26)
[2018-06-01] MEDS: ASPIRIN COATED 81 MG TABLET.EC PO SCH (09:26)
[2018-06-01] MEDS: PRENATAL VITAMINS W/ FOLIC ACID TABLET (FP) PO SCH (09:26)
[2018-06-01] MEDS: SERTRALINE HCL 50 MG TABLET (FP) PO SCH (09:26)
[2018-06-01] MEDS: hydrOXYzine PAMOATE 50 MG CAPSULE (FP) PO PRN (21:01)
[2018-06-01] MEDS: ATORVASTATIN CA 40 MG TABLET (FP) PO SCH (21:01)
[2018-06-01] MEDS: THIAMINE HCL 100 MG TABLET (FP) PO SCH (21:02)
[2018-06-01] MEDS: MELATONIN 5 MG TABLETS PO PRN (21:02)
[2018-06-02] MEDS: amLODIPine BESYLATE 10 MG TABLET (FP) PO SCH (09:44)
[2018-06-02] MEDS: PRENATAL VITAMINS W/ FOLIC ACID TABLET (FP) PO SCH (09:44)
[2018-06-02] MEDS: SERTRALINE HCL 50 MG TABLET (FP) PO SCH (09:44)
[2018-06-02] MEDS: ASPIRIN COATED 81 MG TABLET.EC PO SCH (10:00)
[2018-06-02] MEDS: THIAMINE HCL 100 MG TABLET (FP) PO SCH (21:24)
[2018-06-02] MEDS: IBUPROFEN 400 MG TABLET (FP) PO PRN (21:24)
[2018-06-02] MEDS: MELATONIN 5 MG TABLETS PO PRN (21:24)
[2018-06-02] MEDS: ATORVASTATIN CA 40 MG TABLET (FP) PO SCH (21:25)
[2018-06-02] MEDS: hydrOXYzine PAMOATE 50 MG CAPSULE (FP) PO PRN (21:25)
[2018-06-03] MEDS: PRENATAL VITAMINS W/ FOLIC ACID TABLET (FP) PO SCH (09:52)
[2018-06-03] MEDS: IBUPROFEN 400 MG TABLET (FP) PO PRN ×2 (09:53→21:19)
[2018-06-03] MEDS: amLODIPine BESYLATE 10 MG TABLET (FP) PO SCH (09:53)
[2018-06-03] MEDS: SERTRALINE HCL 50 MG TABLET (FP) PO SCH (09:53)
[2018-06-03] MEDS: ASPIRIN COATED 81 MG TABLET.EC PO SCH (09:53)
[2018-06-03] MEDS: MELATONIN 5 MG TABLETS PO PRN (21:19)
[2018-06-03] MEDS: hydrOXYzine PAMOATE 50 MG CAPSULE (FP) PO PRN (21:19)
[2018-06-03] MEDS: ATORVASTATIN CA 40 MG TABLET (FP) PO SCH (21:19)
[2018-06-03] MEDS: THIAMINE HCL 100 MG TABLET (FP) PO SCH (21:19)
[2018-06-04] MEDS: amLODIPine BESYLATE 10 MG TABLET (FP) PO SCH (09:23)
[2018-06-04] MEDS: ASPIRIN COATED 81 MG TABLET.EC PO SCH (09:23)
[2018-06-04] MEDS: PRENATAL VITAMINS W/ FOLIC ACID TABLET (FP) PO SCH (09:23)
[2018-06-04] MEDS: SERTRALINE HCL 50 MG TABLET (FP) PO SCH (09:23)
[2018-06-04] MEDS: hydrOXYzine PAMOATE 50 MG CAPSULE (FP) PO PRN (21:32)
[2018-06-04] MEDS: ATORVASTATIN CA 40 MG TABLET (FP) PO SCH (21:32)
[2018-06-04] MEDS: THIAMINE HCL 100 MG TABLET (FP) PO SCH (21:32)
[2018-06-04] MEDS: MELATONIN 5 MG TABLETS PO PRN (21:32)
[2018-06-04] MEDS: IBUPROFEN 400 MG TABLET (FP) PO PRN (21:33)
[2018-06-05] MEDS: SERTRALINE HCL 50 MG TABLET (FP) PO SCH (09:27)
[2018-06-05] MEDS: amLODIPine BESYLATE 10 MG TABLET (FP) PO SCH (09:27)
[2018-06-05] MEDS: ASPIRIN COATED 81 MG TABLET.EC PO SCH (09:27)
[2018-06-05] MEDS: PRENATAL VITAMINS W/ FOLIC ACID TABLET (FP) PO SCH (09:27)
[2018-06-05] MEDS: IBUPROFEN 400 MG TABLET (FP) PO PRN ×2 (15:32→21:04)
[2018-06-05] MEDS: ATORVASTATIN CA 40 MG TABLET (FP) PO SCH (21:04)
[2018-06-05] MEDS: THIAMINE HCL 100 MG TABLET (FP) PO SCH (21:04)
[2018-06-05] MEDS: MELATONIN 5 MG TABLETS PO PRN (21:04)
[2018-06-05] MEDS: hydrOXYzine PAMOATE 50 MG CAPSULE (FP) PO PRN (21:05)
[2018-06-06] MEDS: PRENATAL VITAMINS W/ FOLIC ACID TABLET (FP) PO SCH (09:34)
[2018-06-06] MEDS: SERTRALINE HCL 50 MG TABLET (FP) PO SCH (09:34)
[2018-06-06] MEDS: ASPIRIN COATED 81 MG TABLET.EC PO SCH (09:34)
[2018-06-06] MEDS: amLODIPine BESYLATE 10 MG TABLET (FP) PO SCH (09:34)
[2018-06-06] MEDS: IBUPROFEN 400 MG TABLET (FP) PO PRN ×2 (14:05→21:18)
[2018-06-06] MEDS: MELATONIN 5 MG TABLETS PO PRN (21:17)
[2018-06-06] MEDS: THIAMINE HCL 100 MG TABLET (FP) PO SCH (21:17)
[2018-06-06] MEDS: hydrOXYzine PAMOATE 50 MG CAPSULE (FP) PO PRN (21:18)
[2018-06-06] MEDS: ATORVASTATIN CA 40 MG TABLET (FP) PO SCH (21:18)
[2018-06-07] MEDS: ASPIRIN COATED 81 MG TABLET.EC PO SCH (09:27)
[2018-06-07] MEDS: PRENATAL VITAMINS W/ FOLIC ACID TABLET (FP) PO SCH (09:27)
[2018-06-07] MEDS: SERTRALINE HCL 50 MG TABLET (FP) PO SCH (09:27)
[2018-06-07] MEDS: amLODIPine BESYLATE 10 MG TABLET (FP) PO SCH (09:27)
[2018-06-07] MEDS: hydrOXYzine PAMOATE 50 MG CAPSULE (FP) PO PRN ×2 (10:17→21:30)
[2018-06-07] MEDS: MELATONIN 5 MG TABLETS PO PRN (21:29)
[2018-06-07] MEDS: ATORVASTATIN CA 40 MG TABLET (FP) PO SCH (21:29)
[2018-06-07] MEDS: THIAMINE HCL 100 MG TABLET (FP) PO SCH (21:29)
[2018-06-07] MEDS: IBUPROFEN 400 MG TABLET (FP) PO PRN (21:30)
[2018-06-08] MEDS: PRENATAL VITAMINS W/ FOLIC ACID TABLET (FP) PO SCH (09:42)
[2018-06-08] MEDS: ASPIRIN COATED 81 MG TABLET.EC PO SCH (09:42)
[2018-06-08] MEDS: amLODIPine BESYLATE 10 MG TABLET (FP) PO SCH (09:42)
[2018-06-08] MEDS: SERTRALINE HCL 50 MG TABLET (FP) PO SCH (09:42)
[2018-06-08] MEDS: IBUPROFEN 400 MG TABLET (FP) PO PRN (21:26)
[2018-06-08] MEDS: ATORVASTATIN CA 40 MG TABLET (FP) PO SCH (21:27)
[2018-06-08] MEDS: MELATONIN 5 MG TABLETS PO PRN (21:27)
[2018-06-08] MEDS: THIAMINE HCL 100 MG TABLET (FP) PO SCH (21:27)
[2018-06-08] MEDS: hydrOXYzine PAMOATE 50 MG CAPSULE (FP) PO PRN (21:27)
[2018-06-09] MEDS: ASPIRIN COATED 81 MG TABLET.EC PO SCH (09:36)
[2018-06-09] MEDS: SERTRALINE HCL 50 MG TABLET (FP) PO SCH (09:36)
[2018-06-09] MEDS: amLODIPine BESYLATE 10 MG TABLET (FP) PO SCH (09:36)
[2018-06-09] MEDS: PRENATAL VITAMINS W/ FOLIC ACID TABLET (FP) PO SCH (09:36)
--- NOTE | 2018-06-09 14:02 | PN ---
S Progress Note (SOAP) Subjective: For discharge in am. Requesting prescriptions sent to [facility] for pick- up in am. Primary Care provider is at [facility]. Objective: Alert and oriented. Vital Signs 06/09/18 06/09/18 06:33 10:00 Temperature 97.5 F L Pulse Rate 67 78 Respiratory 18 18 Rate Blood Pressure 117/78 133/80 Assessment: For discharge in am Sustained remission Plan: Medications reviewed. Send presc for ator,etc. Patient instructed to make an appt w/ PCP for health care f/u Patient states will f/u w/ AA and NA.
[2018-06-09] MEDS: IBUPROFEN 400 MG TABLET (FP) PO PRN (21:20)
[2018-06-09] MEDS: ATORVASTATIN CA 40 MG TABLET (FP) PO SCH (21:20)
[2018-06-09] MEDS: MELATONIN 5 MG TABLETS PO PRN (21:21)
[2018-06-09] MEDS: hydrOXYzine PAMOATE 50 MG CAPSULE (FP) PO PRN (21:21)
[2018-06-09] MEDS: THIAMINE HCL 100 MG TABLET (FP) PO SCH (21:22)
[2018-06-10 06:48] VITALS: BP 136/85; PULSE 53; TEMP 97.8
--- NOTE | 2018-06-10 08:25 | PN ---
Psychiatric Progress Note Vital Signs: Vital Signs Period Temp Pulse Resp BP Sys/Lawson Pulse Ox Last 24 Hr 97.8 F 53-78 16-18 133-136/80-85 Date of Session: 06/10/18 Chief Complaint:: "Discharge" HPI: Patient was admitted to [facility] for alcohol and cocaine dependence. ROS: Significant for hypertension, dyslipidemia, coronary artery disease/ myocardial infarction with 3 stents placement Current Medications: Active Medications Generic Name Dose Route Start Last Admin Trade Name Freq PRN Reason Stop Dose Admin Acetaminophen 650 mg 05/13/18 17:28 Tylenol - PO Q4H PRN FEVER Al Hydroxide/Mg Hydroxide 30 ml 05/13/18 17:28 Mylanta Oral Suspension - PO Q6H PRN DYSPEPSIA Amlodipine Besylate 10 mg 05/21/18 10:00 06/09/18 09:36 Norvasc - PO 10 mg DAILY HARSHA Administration Aspirin 81 mg 05/14/18 10:00 06/09/18 09:36 Ecotrin - PO 81 mg DAILY HARSHA Administration Atorvastatin Calcium 40 mg 05/13/18 22:00 06/09/18 21:20 Lipitor - PO 40 mg HS HARSHA Administration Eucalyptus/Menthol/Phenol/Sorbitol 1 each 05/13/18 17:28 Cepastat Lozenge - MM Q4H PRN SORE THROAT Guaifenesin 10 ml 05/13/18 17:28 Robitussin Dm - PO Q6H PRN COUGH Hydroxyzine Pamoate 50 mg 05/13/18 17:28 06/09/18 21:21 Vistaril - PO 50 mg Q4H PRN Administration AGITATION Ibuprofen 400 mg 05/13/18 17:28 06/09/18 21:20 Motrin - PO 400 mg Q6H PRN Administration PAIN LEVEL 4-6 Loperamide HCl 4 mg 05/13/18 17:28 05/14/18 10:27 Imodium - PO 4 mg Q6H PRN Administration DIARRHEA Magnesium Citrate 300 ml 05/13/18 17:28 Citroma - PO Q48H PRN CONSTIPATION Magnesium Hydroxide 30 ml 05/13/18 17:28 Milk Of Magnesia - PO DAILY PRN CONSTIPATION Melatonin 5 mg 05/13/18 22:00 06/09/18 21:21 Melatonin PO 5 mg HS PRN Administration INSOMNIA Multivit/Folic Acid/Iron 1 tab 05/14/18 10:00 06/09/18 09:36 Vitamins (Sjr) - PO 1 tab DAILY HARSHA Administration Pseudoephedrine/Triprolidine 1 combo 05/13/18 17:28 Actifed - PO TID PRN NASAL CONGESTION Sertraline HCl 50 mg 05/19/18 11:05 06/09/18 09:36 Zoloft - PO 50 mg DAILY HARSHA Administration Thiamine HCl 100 mg 05/13/18 22:00 06/09/18 21:22 Vitamin B1 - PO 100 mg HS HARSHA Administration Medication(s) Change(s): No. Current Side Effect: No Lab tests ordered: No Lab tests reviewed: Yes Provider note:: Patient completed the rehabilitation program on 06/10/18. He has met his treatment goals and is able to identify behaviors that contribute to relapsing. Through participation of this program patient has learned the importance of changing his behaviors and the need for more structure in his life. Pt. will continue to address his issues at [facility] located in [place], [place]. An electronic prescription of zoloft 50mg for 30 days was electronically sent to [facility]. Pt is stable for discharge on 06/10/18. Total face to face time:: 30 Mental Status Exam - Mental Status Exam Alert and Oriented to: Time, Place, Person Cognitive Function: Good Patient Appearance: Well Groomed Mood: Hopeful Affect: Appropriate, Mood Congruent Patient Behavior: Appropriate, Cooperative Speech Pattern: Clear, Appropriate Voice Loudness: Normal Thought Process: Intact, Goal Oriented Thought Disorder: Not Present Hallucinations: Denies Suicidal Ideation: Denies Homicidal Ideation: Denies Insight/Judgement: Good Sleep: Well Appetite: Good Muscle strength/Tone: Normal Gait/Station: Normal Psychiatric Treatment Plan - Problem List (1) Alcohol dependence Current Visit: Yes (2) Substance induced mood disorder Current Visit: Yes (3) Amphetamine abuse Current Visit: Yes
--- NOTE | 2018-06-10 08:55 | PN ---
Julio Progress Note Note: RECEIVED NURSE CALLED THAT THE PATIENT HAS BEEN DISCHARGED TODAY REQUIRED MEDICATIONS REFILLED. CHART REVIEWED THAT HYPERTENSION GRADUALLY BEEN CONTROLLED BY THE PHARMACOTHERAPY, ONE MONTH ANTIHYPERTENSANT E PRESCRIBED TO THE PHARMACY RECOMMEND THAT THE CHOLESTEROLERAL SERUM LEVEL NEEDED TO BE MONITORED FOR THE EFFICACY OF THE TREATMENT MODALITIES
[2018-06-10] MEDS: PRENATAL VITAMINS W/ FOLIC ACID TABLET (FP) PO SCH (09:11)
[2018-06-10] MEDS: amLODIPine BESYLATE 10 MG TABLET (FP) PO SCH (09:11)
[2018-06-10] MEDS: ASPIRIN COATED 81 MG TABLET.EC PO SCH (09:11)
[2018-06-10] MEDS: SERTRALINE HCL 50 MG TABLET (FP) PO SCH (09:11)
== END 2018-06-10 09:18 | disposition home or self-care (01) | DRG 895 ==
LOC: YASAS 11:07 → Y3N 17:39 → Y3W 05-16 15:00
PROVIDERS: ADMIT Surgery; ATTEND Psychiatry & Neurology Psychiatry
PROC: HZ2ZZZZ Detoxification Services for Substance Abuse Treatment (ICD-10-PCS; 2018-05-13)
PROC: HZ42ZZZ Group Counseling for Substance Abuse Treatment, Cognitive-Behavioral (ICD-10-PCS; principal; 2018-05-19)
DX: F10.230 Alcohol dependence with withdrawal, uncomplicated (principal); F14.20 Cocaine dependence, uncomplicated; F33.1 Major depressive disorder, recurrent, moderate; F15.10 Other stimulant abuse, uncomplicated; F19.24 Other psychoactive substance dependence with psychoactive substance-induced mood disorder; I25.10 Atherosclerotic heart disease of native coronary artery without angina pectoris; Z95.5 Presence of coronary angioplasty implant and graft; I10 Essential (primary) hypertension; I25.2 Old myocardial infarction; E78.5 Hyperlipidemia, unspecified
CPT/HCPCS: 36415; 80048; 80053; 81003; 81015; 85027; 86593; 87086; 93005; 93010

== ENCOUNTER 2018-10-21 19:40 | Inpatient (IN) | payer OTHER ==
[2018-10-21 20:16] VITALS: BMI 36.3
--- NOTE | 2018-10-21 20:18 | HP ---
CIWA Score Nausea/Vomitin-Mild Nausea/No Vomiting Muscle Tremors: 4-Moderate,w/Arms Extend Anxiety: 3 Agitation: 3 Paroxysmal Sweats: 1-Minimal Palms Moist Orientation: 0-Oriented Tacttile Disturbances: 1-Very Mild Itch/Numbness Auditory Disturbances: 0-None Visual Disturbances: 0-None Headache: 3-Moderate CIWA-Ar Total Score: 16 - Admission Criteria OASAS Guidelines: Admission for Medically Managed Detox: Requires at least one of the followin. CIWA greater than 12 2. Seizures within the past 24 hours 3. Delirium tremens within the past 24 hours 4. Hallucinations within the past 24 hours 5. Acute intervention needed for co occurring medical disorder 6. Acute intervention needed for co occurring psychiatric disorder 7. Severe withdrawal that cannot be handled at a lower level of care (continued vomiting, continued diarrhea, abnormal vital signs) requiring intravenous medication and/or fluids 8. [facility] Chief Complaint: Alcohol withdrawal symptoms Allergies/Adverse Reactions: Allergies Allergy/AdvReac Type Severity Reaction Status Date / Time No Known Drug Allergies Allergy Verified 10/21/18 20:03 History of Present Illness: 58 years old male with 33 years history of alcohol dependence is seeking admission to detox. Patient has been to previous detox, last at [facility] and reports a year of sobriety. He has medical history of Hypertension, Hypercholesterolemia, CAD with [address], Depression and anxiety. He denies suicidal attempt or suicidal ideation at this time. Exam Limitations: No Limitations - Ebola screening Have you traveled outside of the country in the last 21 days: No Have you had contact with anyone from an Ebola affected area: No Have you been sick,other than usual withdrawal symptoms: No Do you have a fever: No - Review of Systems Constitutional: Loss of Appetite, Malaise, Night Sweats, Changes in sleep EENT: reports: No Symptoms Reported Respiratory: reports: No Symptoms reported GI: reports: Poor Appetite, Poor Fluid Intake, Abdominal cramping, Other Musculoskeletal: reports: No Symptoms Reported Integumentary: reports: Dryness, Flushing Neuro: reports: Headache, Tremors Endocrine: reports: No Symptoms Reported Hematology: reports: No Symptoms Reported Psychiatric: reports: Orientated x3, Anxious, Depressed Other Systems: Reviewed and Negative Patient History - Patient Medical History Hx Anemia: No Hx Asthma: No Hx Chronic Obstructive Pulmonary Disease (COPD): No Hx Cancer: No Hx Cardiac Disorders: Yes ( CAD with stent insertion last 2016- Aspirin) Hx Congestive Heart Failure: No Hx Hypertension: Yes (Norvasc) Hx Hypercholesterolemia: Yes (Atorvastatin) Hx Pacemaker: No HX Cerebrovascular Accident: No Hx Seizures: No Hx Dementia: No Hx Diabetes: No Hx Gastrointestinal Disorders: No Hx Liver Disease: No Hx Genitourinary Disorders: No Hx Sexually Transmitted Disorders: No Hx Renal Disease (ESRD): No Hx Thyroid Disease: No Hx Human Immunodeficiency Virus (HIV): No (Negative October 2018) Hx Hepatitis C: No Hx Depression: Yes (Zoloft) Hx Suicide Attempt: No (Denies suicidal ideation at this time) Hx Bipolar Disorder: Yes (Not on medication) Hx Schizophrenia: No Other Medical History: Anxiety - Not on medication - Patient Surgical History Past Surgical History: Yes Hx Neurologic Surgery: No Hx Cataract Extraction: No Hx Cardiac Surgery: Yes (cardiac cath-2 stents last 2016) Hx Lung Surgery: No Hx Breast Surgery: No Hx Breast Biopsy: No Hx Abdominal Surgery: No Hx Appendectomy: No Hx Cholecystectomy: No Hx Genitourinary Surgery: No Hx Section: No Hx Orthopedic Surgery: No Anesthesia Reaction: No - PPD History Previous Implant?: Yes Documented Results: Negative w/proof Date: 05/15/18 Results: 0 mm PPD to be Administered?: No - Reproductive History Patient is a Female of Child Bearing Age (11 -55 yrs old): No (Male) - Smoking Cessation Smoking history: Never smoked Have you smoked in the past 12 months: No Hx Chewing Tobacco Use: No Initiated information on smoking cessation: No - Substance & Tx. History Hx Alcohol Use: Yes Hx Substance Use: Yes Substance Use Type: Alcohol, Tranquilizers Hx Substance Use Treatment: Yes ([facility]) - Substances Abused Alcohol Route: Oral Frequency: Daily Amount used: liquor- 1 pint, beer- 4 (24oz) Age of first use: 19 Date of Last Use: 10/21/18 Crystal meth Route: Smoking Frequency: Daily Amount used: $50 worth Age of first use: 58 Date of Last Use: 10/17/18 Family Disease History - Family Disease History Family Disease History: Heart Disease: Mother ( ), Other: Father (ETOH DEPENDENCE: ), Brother (DRUG OVERDOSE - ) Admission Physical Exam BHS - Physical General Appearance: Yes: Moderate Distress, Tremorous, Irritable, Sweating, Anxious HEENTM: Yes: EOMI, Normal ENT Inspection, Normocephalic, Normal Voice, ARIS Respiratory: Yes: Lungs Clear, Normal Breath Sounds, No Respiratory Distress Breast: Yes: Breast Exam Deferred Cardiology: Yes: Regular Rhythm, Regular Rate Abdominal: Yes: Normal Bowel Sounds, Protuberent Genitourinary: Yes: Within Normal Limits Back: Yes: Normal Inspection Musculoskeletal: Yes: Within Normal Limits Extremities: Yes: Normal Inspection Neurological: Yes: Alert, Normal Mood/Affect Integumentary: Yes: Warm Lymphatic: Yes: Within Normal Limits - Diagnostic (1) Anxiety Current Visit: No Status: Active (2) depression Current Visit: No Status: Chronic (3) Alcohol dependence with uncomplicated withdrawal Current Visit: No Status: Chronic (4) Amphetamine abuse Current Visit: No Status: Chronic (5) Coronary arteriosclerosis Current Visit: No Status: Chronic (6) Hypercholesterolemia Current Visit: No Status: Chronic (7) Hypertension Current Visit: No Status: Chronic Qualifiers: Hypertension type: unspecified Qualified Code(s): I10 - Essential (primary ) hypertension (8) MDD (major depressive disorder), recurrent episode, moderate Current Visit: No Status: Chronic Cleared for Admission [facility] - Detox or Rehab [facility] Level of Care: Medically Managed Detox Regimen/Protocol: Librium [facility] Breath Alcohol Content Breath Alcohol Content: 0
[2018-10-21] MEDS ORDERED: ACETAMINOPHEN 325 MG TABLET (FP) PO PRN (20:30)
[2018-10-21] MEDS ORDERED: MAGNESIUM HYDROX 2400MG/30ML ORAL SUSPENSION 30 ML CUP PO PRN (20:30)
[2018-10-21] MEDS ORDERED: MENTHOL/PHENOL 1 EACH UD MM PRN (20:30)
[2018-10-21] MEDS ORDERED: MAGNESIUM CITRATE 300 ML BOTTLE PO PRN (20:30)
[2018-10-21] MEDS ORDERED: chlordiazePOXIDE HCL 25 MG CAPSULE PO PRN (20:30)
[2018-10-21] MEDS ORDERED: LOPERAMIDE HCL 2 MG CAPSULE PO PRN (20:30)
[2018-10-21] MEDS ORDERED: P-EPHED 60MG/TRIPROLIDI 2.5MG TABLET PO PRN (20:30)
[2018-10-21] MEDS ORDERED: IBUPROFEN 400 MG TABLET (FP) PO PRN (20:30)
[2018-10-21] MEDS ORDERED: MAG HYDROX/AL HYDROX/SIMETH 30 ML UNIT-DOSE CUP PO PRN (20:30)
[2018-10-21] MEDS ORDERED: MELATONIN 5 MG TABLETS PO PRN (22:00)
[2018-10-21] MEDS: THIAMINE HCL 100 MG TABLET (FP) PO SCH (22:35)
[2018-10-21] MEDS: chlordiazePOXIDE HCL 25 MG CAPSULE PO SCH (22:35)
[2018-10-21] MEDS: ATORVASTATIN CA 40 MG TABLET (FP) PO SCH (22:35)
[2018-10-21] MEDS: ASPIRIN COATED 81 MG TABLET.EC PO SCH (22:35)
[2018-10-21] MEDS: guaiFENesin/D-METHORPHAN HB 10 ML UNIT-DOSE CUPS PO PRN (22:37)
[2018-10-22] MEDS: chlordiazePOXIDE HCL 25 MG CAPSULE PO SCH ×4 (04:58→22:16)
[2018-10-22] MEDS: guaiFENesin/D-METHORPHAN HB 10 ML UNIT-DOSE CUPS PO PRN ×4 (04:59→23:37)
--- NOTE | 2018-10-22 07:42 | CONSULT ---
[facility] Psychiatric Consult - Data Date of interview: 10/22/18 Admission source: [facility] Identifying data: This is a 58 years old male, single father of two, unemployed , living at [facility], on SSI support, with 33 years history of alcohol dependence is seeking admission to detox. Patient has history of Alcohol, Cocaine, Amphetamins, Crystal Meth abuse/dependence, reporting withdrawal symptoms and seeking for detox. Substance Abuse History: Smoking history: Never smoked. Have you smoked in the past 12 months: No. Hx Chewing Tobacco Use: No. Initiated information on smoking cessation: No. - Substance & Tx. History. Hx Alcohol Use: Yes. Hx Substance Use: Yes. Substance Use Type: Alcohol, Tranquilizers. Hx Substance Use Treatment: Yes ([facility]). - Substances Abused. Alcohol. Route: Oral. Frequency: Daily. Amount used: liquor- 1 pint, beer- 4 (24oz). Age of first use: 19. Date of Last Use: 10/21/18. Crystal meth. Route: Smoking. Frequency: Daily. Amount used: $50 worth. Age of first use: 58. Date of Last Use: 10/17/18 Medical History: HTN, CAD, Hypercholestarolemia Psychiatric History: Patient reports histopry of MDD, with most recent psychiatric admission on 2014 at [facility] for safety, denies suicidal, homicidal history, reports taking prior to admission: Zoloft 50mg poqd. As per chart howard has a history of Bipolar Disorder Physical/Sexual Abuse/Trauma History: Denies Additional Comment: Zoloft 50mg poqd Mental Status Exam - Mental Status Exam Alert and Oriented to: Person Cognitive Function: Fair Patient Appearance: Unkempt Mood: Apprehensive Affect: Flat Patient Behavior: Sedated Speech Pattern: Delayed Voice Loudness: Mildly Soft/Quiet Thought Process: Circumstantial Thought Disorder: Being Controlled Hallucinations: Denies Suicidal Ideation: Denies Homicidal Ideation: Denies Insight/Judgement: Fair Sleep: Difficulty falling asleep Appetite: Fair Muscle strength/Tone: Mild Hypotonicity Gait/Station: Shuffling Additional Comments: Zoloft 50mg poqd Psychiatric Findings - Problem List ([place] 1, 2,3) (1) Alcohol dependence Current Visit: No Status: Active (2) Cocaine dependence Current Visit: No Status: Active (3) Substance induced mood disorder Current Visit: No Status: Acute (4) Substance-induced anxiety disorder Current Visit: No Status: Acute (5) Substance-induced sleep disorder Current Visit: No Status: Acute (6) Alcohol dependence with uncomplicated withdrawal Current Visit: No Status: Chronic (7) Amphetamine abuse Current Visit: No Status: Chronic (8) Coronary arteriosclerosis Current Visit: No Status: Chronic (9) Essential hypertension Current Visit: No Status: Chronic (10) Hypercholesterolemia Current Visit: No Status: Chronic (11) Hypertension Current Visit: No Status: Chronic Qualifiers: Hypertension type: unspecified Qualified Code(s): I10 - Essential (primary ) hypertension (12) MDD (major depressive disorder), recurrent episode, moderate Current Visit: No Status: Chronic - Initial Treatment Plan Initial Treatment Plan: Zoloft 50mg poqd
[2018-10-22] MEDS: PRENATAL VITAMINS W/ FOLIC ACID TABLET (FP) PO SCH (10:19)
[2018-10-22] MEDS: amLODIPine BESYLATE 5 MG TABLET (FP) PO SCH (10:19)
[2018-10-22] MEDS: ASPIRIN COATED 81 MG TABLET.EC PO SCH (10:19)
[2018-10-22] MEDS: SERTRALINE HCL 50 MG TABLET (FP) PO SCH (10:19)
[2018-10-22 10:26] LABS: HEMATOCRIT 48.7 % (35.4-49); HEMOGLOBIN 17.2 GM/dL (11.7-16.9); MCH 31.3 pg (25.7-33.7); MCHC 35.4 g/dl (32.0-35.9); MEAN CELL VOLUME 88.5 fl (80-96); MEAN PLT VOLUME 9.2 fl (7.5-11.1); PLATELET COUNT 154 K/MM3 (134-434); RDW 14.7 % (11.9-15.9); WHITE BLOOD COUNT 5.7 K/mm3 (4.0-10.0)
[2018-10-22 10:58] LABS: ALBUMIN 3.1 g/dl (3.4-5.0); ALK PHOS 72 U/L (45-117); ANION GAP 11 MMOL/L (8-16); BILIRUBIN,TOTAL 0.7 mg/dL (0.2-1); BLOOD UREA NITROGEN 11 mg/dL (7-18); CHLORIDE 98 mmol/L (98-107); CO2 30 mmol/L (21-32); CREATININE 0.9 mg/dL (0.55-1.3); GLUCOSE,RANDOM 86 mg/dL (74-106); SGOT/AST 115 U/L (15-37); SGPT/ALT 90 U/L (13-61); SODIUM 139 mmol/L (136-145); TOT PROT 6.8 g/dl (6.4-8.2)
--- NOTE | 2018-10-22 11:24 | PN ---
S CIWA - CIWA Score Nausea/Vomitin-Mild Nausea/No Vomiting Muscle Tremors: 4-Moderate,w/Arms Extend Anxiety: 3 Agitation: 2 Paroxysmal Sweats: 1-Minimal Palms Moist Orientation: 0-Oriented Tacttile Disturbances: 1-Very Mild Itch/Numbness Auditory Disturbances: 0-None Visual Disturbances: 0-None Headache: 2-Mild CIWA-Ar Total Score: 14 BHS Progress Note (SOAP) Subjective: sweat body aches restlessness anxiety Objective: 10/22/18 11:25 Vital Signs Temperature 96.3 F L 10/22/18 09:04 Pulse Rate 71 10/22/18 09:04 Respiratory Rate 18 10/22/18 09:04 Blood Pressure 130/83 10/22/18 09:04 O2 Sat by Pulse Oximetry (%) Laboratory Last Values WBC 5.7 K/mm3 (4.0-10.0) 10/22/18 07:00 RBC 5.50 M/mm3 (4.00-5.60) 10/22/18 07:00 Hgb 17.2 GM/dL (11.7-16.9) H 10/22/18 07:00 Hct 48.7 % (35.4-49) 10/22/18 07:00 MCV 88.5 fl (80-96) 10/22/18 07:00 MCH 31.3 pg (25.7-33.7) D 10/22/18 07:00 MCHC 35.4 g/dl (32.0-35.9) 10/22/18 07:00 RDW 14.7 % (11.9-15.9) 10/22/18 07:00 Plt Count 154 K/MM3 (134-434) D 10/22/18 07:00 MPV 9.2 fl (7.5-11.1) 10/22/18 07:00 Sodium 139 mmol/L (136-145) 10/22/18 07:00 Chloride 98 mmol/L (98-107) 10/22/18 07:00 Carbon Dioxide 30 mmol/L (21-32) 10/22/18 07:00 Anion Gap 11 MMOL/L (8-16) 10/22/18 07:00 BUN 11 mg/dL (7-18) 10/22/18 07:00 Creatinine 0.9 mg/dL (0.55-1.3) 10/22/18 07:00 Creat Clearance w eGFR > 60 (>60) 10/22/18 07:00 Random Glucose 86 mg/dL (74-106) 10/22/18 07:00 Calcium 8.0 mg/dL (8.5-10.1) L 10/22/18 07:00 Total Bilirubin 0.7 mg/dL (0.2-1) 10/22/18 07:00 AST 115 U/L (15-37) H 10/22/18 07:00 ALT 90 U/L (13-61) H 10/22/18 07:00 Alkaline Phosphatase 72 U/L (45-117) 10/22/18 07:00 Total Protein 6.8 g/dl (6.4-8.2) 10/22/18 07:00 Albumin 3.1 g/dl (3.4-5.0) L 10/22/18 07:00 lab noted low Ca++ Assessment: 10/22/18 11:26 withdrawal sx low calcium Plan: continue detox oscal supplement
[2018-10-22 11:28] LABS: POTASSIUM 2.5 mmol/L (3.5-5.1)
[2018-10-22] MEDS: POTASSIUM CHLORIDE TABS 20 MEQ TABLET.ER (FP) PO SCH (13:12)
[2018-10-22] MEDS: CALCIUM 250MG/VIT-D 125 UNITS 1 COMBO TABLET PO SCH ×2 (15:24→22:16)
[2018-10-22] MEDS: THIAMINE HCL 100 MG TABLET (FP) PO SCH (22:16)
[2018-10-22] MEDS: ATORVASTATIN CA 40 MG TABLET (FP) PO SCH (22:16)
[2018-10-23] MEDS: chlordiazePOXIDE HCL 25 MG CAPSULE PO SCH ×3 (05:06→17:28)
[2018-10-23] MEDS: guaiFENesin/D-METHORPHAN HB 10 ML UNIT-DOSE CUPS PO PRN ×2 (05:08→12:25)
[2018-10-23] MEDS: POTASSIUM CHLORIDE TABS 20 MEQ TABLET.ER (FP) PO SCH (10:08)
[2018-10-23] MEDS: CALCIUM 250MG/VIT-D 125 UNITS 1 COMBO TABLET PO SCH ×2 (10:08→22:55)
[2018-10-23] MEDS: ASPIRIN COATED 81 MG TABLET.EC PO SCH (10:08)
[2018-10-23] MEDS: PRENATAL VITAMINS W/ FOLIC ACID TABLET (FP) PO SCH (10:08)
[2018-10-23] MEDS: amLODIPine BESYLATE 5 MG TABLET (FP) PO SCH (10:09)
[2018-10-23] MEDS: SERTRALINE HCL 50 MG TABLET (FP) PO SCH (10:09)
--- NOTE | 2018-10-23 14:42 | PN ---
S CIWA - CIWA Score Nausea/Vomitin-No Nausea/No Vomiting Muscle Tremors: 3 Anxiety: 2 Agitation: 2 Paroxysmal Sweats: 3 Orientation: 0-Oriented Tacttile Disturbances: 0-None Auditory Disturbances: 0-None Visual Disturbances: 0-None Headache: 3-Moderate CIWA-Ar Total Score: 13 S Progress Note (SOAP) Subjective: Tremors, Sweating, H/A. Objective: PATIENT A & O X 3. IN NO ACUTE DISTRESS. 10/23/18 14:48 Vital Signs Temperature 98.6 F 10/23/18 13:58 Pulse Rate 70 10/23/18 13:58 Respiratory Rate 18 10/23/18 13:58 Blood Pressure 132/86 10/23/18 13:58 O2 Sat by Pulse Oximetry (%) Laboratory Tests 10/22/18 10/22/18 10/22/18 07:00 07:00 07:00 WBC 5.7 RBC 5.50 Hgb 17.2 H Hct 48.7 MCV 88.5 MCH 31.3 D MCHC 35.4 RDW 14.7 Plt Count 154 D MPV 9.2 Sodium 139 Potassium 2.5 L* Chloride 98 Carbon Dioxide 30 Anion Gap 11 BUN 11 Creatinine 0.9 Creat Clearance w eGFR > 60 Random Glucose 86 Calcium 8.0 L Total Bilirubin 0.7 AST 115 H ALT 90 H Alkaline Phosphatase 72 Total Protein 6.8 Albumin 3.1 L RPR Titer Nonreactive LABS NOTED. Assessment: 10/23/18 14:49 WITHDRAWAL SYMPTOMS. HYPOKALEMIA. 10/23/18 14:50 Plan: CONTINUE DETOX. INCREASE DAILY PO FLUID INTAKE. REPEAT K LEVEL ORDERED FOR TOMORROW AM.
[2018-10-23] MEDS: ATORVASTATIN CA 40 MG TABLET (FP) PO SCH (22:54)
[2018-10-23] MEDS: THIAMINE HCL 100 MG TABLET (FP) PO SCH (22:55)
[2018-10-23] MEDS: chlordiazePOXIDE 5 MG CAPSULE PO SCH (22:55)
[2018-10-24] MEDS: chlordiazePOXIDE 5 MG CAPSULE PO SCH ×3 (05:27→17:38)
[2018-10-24] MEDS: PRENATAL VITAMINS W/ FOLIC ACID TABLET (FP) PO SCH (10:09)
[2018-10-24] MEDS: SERTRALINE HCL 50 MG TABLET (FP) PO SCH (10:10)
[2018-10-24] MEDS: POTASSIUM CHLORIDE TABS 20 MEQ TABLET.ER (FP) PO SCH (10:10)
[2018-10-24] MEDS: amLODIPine BESYLATE 5 MG TABLET (FP) PO SCH (10:10)
[2018-10-24] MEDS: CALCIUM 250MG/VIT-D 125 UNITS 1 COMBO TABLET PO SCH ×2 (10:10→22:14)
[2018-10-24] MEDS: ASPIRIN COATED 81 MG TABLET.EC PO SCH (10:10)
[2018-10-24] MEDS: guaiFENesin/D-METHORPHAN HB 10 ML UNIT-DOSE CUPS PO PRN ×2 (10:12→17:40)
--- NOTE | 2018-10-24 14:46 | PN ---
BHS Progress Note (SOAP) Subjective: Tremors, H/A. Objective: PATIENT A & O X 3, OBSERVED AMBULATING ON UNIT. IN NO ACUTE DISTRESS. 10/24/18 14:44 Vital Signs Temperature 97.3 F L 10/24/18 13:24 Pulse Rate 71 10/24/18 13:24 Respiratory Rate 18 10/24/18 13:24 Blood Pressure 134/82 10/24/18 13:24 O2 Sat by Pulse Oximetry (%) Laboratory Tests 10/22/18 10/22/18 10/22/18 07:00 07:00 07:00 WBC 5.7 RBC 5.50 Hgb 17.2 H Hct 48.7 MCV 88.5 MCH 31.3 D MCHC 35.4 RDW 14.7 Plt Count 154 D MPV 9.2 Sodium 139 Potassium 2.5 L* Chloride 98 Carbon Dioxide 30 Anion Gap 11 BUN 11 Creatinine 0.9 Creat Clearance w eGFR > 60 Random Glucose 86 Calcium 8.0 L Total Bilirubin 0.7 AST 115 H ALT 90 H Alkaline Phosphatase 72 Total Protein 6.8 Albumin 3.1 L RPR Titer Nonreactive 10/24/18 07:00 WBC RBC Hgb Hct MCV MCH MCHC RDW Plt Count MPV Sodium Potassium 3.5 Chloride Carbon Dioxide Anion Gap BUN Creatinine Creat Clearance w eGFR Random Glucose Calcium Total Bilirubin AST ALT Alkaline Phosphatase Total Protein Albumin RPR Titer LABS NOTED. RESULT OF REPEAT POTASSIUM LEVEL NOTED. POTASSIUM LEVEL NOW NOTED TO BE WITHIN NORMAL RANGE. 10/24/18 14:45 Assessment: 10/24/18 14:45 WITHDRAWAL SYMPTOMS. Plan: CONTINUE DETOX.
[2018-10-24] MEDS: THIAMINE HCL 100 MG TABLET (FP) PO SCH (22:14)
[2018-10-24] MEDS: chlordiazePOXIDE HCL 10 MG CAPSULE PO SCH (22:14)
[2018-10-24] MEDS: ATORVASTATIN CA 40 MG TABLET (FP) PO SCH (22:14)
[2018-10-25] MEDS: chlordiazePOXIDE HCL 10 MG CAPSULE PO SCH (05:10)
[2018-10-25 09:41] VITALS: BP 109/63; PULSE 56; TEMP 98.6
--- NOTE | 2018-10-25 19:34 | DS ---
[facility] Detox Discharge Summary Admission Date: 10/21/18 Discharge Date: 10/25/18 - History Present History: Alcohol Dependence, Cocaine Dependence Additional Comments: PATIENT EXPRESSED INTEREST IN ADMISSION TO [facility] ([place], [place]) FOR AFTERCARE. HOWEVER, NO BEDS ARE CURRENTLY AVAILABLE AT THIS TIME AT [facility]. THEREFORE, PATIENT REFERRED TO [facility] ( [place], [place]) FOR TIME BEING. PATIENT ADVISED TO [facility]CT [facility] ON NEXT BUSINESS DAY (06/28/2019) TO INQUIRE ABOUT POSSIBLE ADMISSION AT THAT TIME. PATIENT VERBALIZED UNDERSTANDING OF RECOMMENDATION. PATIENT DECLINED OFFER OF MEDICATION PRESCRIPTION FOR HOME MEDICATION AT TIME OF DISCHARGE FROM DETOX, NOTING THAT HE CURRENTLY HAS ADEQUATE SUPPLIES OF ALL PRESCRIBED HOME MEDICATIONS CURRENTLY IN HIS POSSESSION. PATIENT WAS DISCHARGED FROM DETOX UNIT IN STABLE MEDICAL CONDITION. Pertinent Past History: Coronary Arteriosclerosis, History of Cardiac Stent Placement, HTN, Hypercholesterolemia, Depression, Anxiety, History of Bipolar Disorder. - Physical Exam Results Vital Signs: Vital Signs Temperature 98.6 F 10/25/18 09:37 Pulse Rate 56 L 10/25/18 09:37 Respiratory Rate 20 10/25/18 09:37 Blood Pressure 109/63 10/25/18 09:37 O2 Sat by Pulse Oximetry (%) Pertinent Admission Physical Exam Findings: WITHDRAWAL SYMPTOMS. Laboratory Tests 10/22/18 10/22/18 10/22/18 07:00 07:00 07:00 WBC 5.7 RBC 5.50 Hgb 17.2 H Hct 48.7 MCV 88.5 MCH 31.3 D MCHC 35.4 RDW 14.7 Plt Count 154 D MPV 9.2 Sodium 139 Potassium 2.5 L* Chloride 98 Carbon Dioxide 30 Anion Gap 11 BUN 11 Creatinine 0.9 Creat Clearance w eGFR > 60 Random Glucose 86 Calcium 8.0 L Total Bilirubin 0.7 AST 115 H ALT 90 H Alkaline Phosphatase 72 Total Protein 6.8 Albumin 3.1 L RPR Titer Nonreactive 10/24/18 07:00 WBC RBC Hgb Hct MCV MCH MCHC RDW Plt Count MPV Sodium Potassium 3.5 Chloride Carbon Dioxide Anion Gap BUN Creatinine Creat Clearance w eGFR Random Glucose Calcium Total Bilirubin AST ALT Alkaline Phosphatase Total Protein Albumin RPR Titer LABS NOTED. - Treatment Hospital Course: Detox Protocol Followed, Detoxed Safely, Responded well, Discharged Condition Good Patient has Accepted a Rehab Referral to: PT. WILL APPLY FOR ADMISSION TO [facility] WHEN BED AVAILABLE. - Medication Discharge Medications: Ambulatory Orders Aspirin Coated [Ecotrin -] 81 mg PO DAILY 03/06/13 Amlodipine Besylate [Norvasc -] 5 mg PO DAILY #30 tablet 06/10/18 Atorvastatin Ca [Lipitor] 40 mg PO HS #30 tablet 06/10/18 Sertraline HCl [Zoloft -] 50 mg PO DAILY #30 tablet 06/10/18 Sertraline HCl [Zoloft -] 50 mg PO DAILY #30 tablet 10/22/18 - Diagnosis (1) Cocaine dependence Status: Active (2) Substance induced mood disorder Status: Acute (3) Substance-induced anxiety disorder Status: Acute (4) Alcohol dependence with uncomplicated withdrawal Status: Chronic (5) Amphetamine abuse Status: Chronic (6) Essential hypertension Status: Chronic (7) Hypercholesterolemia Status: Chronic (8) MDD (major depressive disorder), recurrent episode, moderate Status: Chronic (9) Anxiety Status: Active (10) Substance-induced sleep disorder Status: Acute (11) Coronary arteriosclerosis Status: Chronic - AMA Did Patient Leave Against Medical Advice: No
== END 2018-10-25 10:00 | disposition home or self-care (01) | DRG 897 ==
LOC: YASAS 19:40 → Y3N 20:23
PROVIDERS: ADMIT Neuromusculoskeletal Medicine & OMM; ATTEND Neuromusculoskeletal Medicine & OMM
PROC: HZ2ZZZZ Detoxification Services for Substance Abuse Treatment (ICD-10-PCS; principal; 2018-10-21)
DX: F10.230 Alcohol dependence with withdrawal, uncomplicated (principal); F14.20 Cocaine dependence, uncomplicated; F19.282 Other psychoactive substance dependence with psychoactive substance-induced sleep disorder; F19.280 Other psychoactive substance dependence with psychoactive substance-induced anxiety disorder; F33.1 Major depressive disorder, recurrent, moderate; F15.10 Other stimulant abuse, uncomplicated; F19.24 Other psychoactive substance dependence with psychoactive substance-induced mood disorder; F41.9 Anxiety disorder, unspecified; I10 Essential (primary) hypertension; I25.10 Atherosclerotic heart disease of native coronary artery without angina pectoris; E78.00 Pure hypercholesterolemia, unspecified; E87.6 Hypokalemia; I25.83 Coronary atherosclerosis due to lipid rich plaque; Z95.5 Presence of coronary angioplasty implant and graft
CPT/HCPCS: 36415; 80053; 84132; 85027; 86593

== ENCOUNTER 2018-10-28 13:48 | Inpatient (IN) | payer OTHER ==
[2018-10-28 14:23] VITALS: BMI 36.3
--- NOTE | 2018-10-28 14:58 | HP ---
CIWA Score - Admission Criteria [facility] Guidelines: Admission for Medically Managed Detox: Requires at least one of the followin. CIWA greater than 12 2. Seizures within the past 24 hours 3. Delirium tremens within the past 24 hours 4. Hallucinations within the past 24 hours 5. Acute intervention needed for co occurring medical disorder 6. Acute intervention needed for co occurring psychiatric disorder 7. Severe withdrawal that cannot be handled at a lower level of care (continued vomiting, continued diarrhea, abnormal vital signs) requiring intravenous medication and/or fluids 8. Admission ROS S - HPI Allergies/Adverse Reactions: Allergies Allergy/AdvReac Type Severity Reaction Status Date / Time No Known Drug Allergies Allergy Verified 10/21/18 20:03 History of Present Illness: patient here requesting rehab from etoh use , s/p detox at this facility , denies etoh use since d/c , sprained left ankle yesterday evening, went to [facility], given crutches , denies frx . tobacco : denies cocaine : occasional denies other illicits PMHX : htn, cardiac stenting done x 3 latest 7 mo ago PSHx : as above PSych : depression . SHx : lives alone , on SSD x 3 years for learning disability Exam Limitations: No Limitations - Ebola screening Have you traveled outside of the country in the last 21 days: No Have you had contact with anyone from an Ebola affected area: No Have you been sick,other than usual withdrawal symptoms: No - Review of Systems Constitutional: No Symptoms Reported EENT: reports: No Symptoms Reported Respiratory: reports: No Symptoms reported Cardiac: reports: No Symptoms Reported GI: reports: No Symptoms Reported : reports: No Symptoms Reported Musculoskeletal: reports: See HPI Integumentary: reports: No Symptoms Reported Neuro: reports: No Symptoms reported Endocrine: reports: No Symptoms Reported Psychiatric: reports: Orientated x3 Patient History - Patient Medical History Hx Anemia: No Hx Asthma: No Hx Chronic Obstructive Pulmonary Disease (COPD): No Hx Cancer: No Hx Cardiac Disorders: Yes ( CAD with stent insertion last 2016- Aspirin) Hx Congestive Heart Failure: No Hx Hypertension: Yes (Norvasc) Hx Hypercholesterolemia: Yes (Atorvastatin) Hx Pacemaker: No HX Cerebrovascular Accident: No Hx Seizures: No Hx Dementia: No Hx Diabetes: No Hx Gastrointestinal Disorders: No Hx Liver Disease: No Hx Genitourinary Disorders: No Hx Sexually Transmitted Disorders: No Hx Renal Disease (ESRD): No Hx Thyroid Disease: No Hx Human Immunodeficiency Virus (HIV): No (Negative October 2018) Hx Hepatitis C: No Hx Depression: Yes (Zoloft) Hx Suicide Attempt: No (Denies suicidal ideation at this time) Hx Bipolar Disorder: Yes (Not on medication) Hx Schizophrenia: No - Patient Surgical History Past Surgical History: Yes Hx Neurologic Surgery: No Hx Cataract Extraction: No Hx Cardiac Surgery: Yes (cardiac cath-2 stents last 2016) Hx Lung Surgery: No Hx Breast Surgery: No Hx Breast Biopsy: No Hx Abdominal Surgery: No Hx Appendectomy: No Hx Cholecystectomy: No Hx Genitourinary Surgery: No Hx Section: No Hx Orthopedic Surgery: No Anesthesia Reaction: No - PPD History Date: 05/15/18 Results: 0 mm - Smoking Cessation Smoking history: Never smoked Have you smoked in the past 12 months: No Hx Chewing Tobacco Use: No Family Disease History - Family Disease History Family Disease History: Heart Disease: Mother ( ), Other: Father (ETOH DEPENDENCE: ), Brother (DRUG OVERDOSE - ) Admission Physical Exam [facility] - Vital Signs Vital Signs: Vital Signs - 24 hr 10/28/18 14:22 Temperature 97.6 F Pulse Rate 93 H Respiratory 18 Rate Blood Pressure 164/113 H - Physical General Appearance: Yes: No Apparent Distress HEENTM: Yes: EOMI, Normocephalic, Normal Voice Respiratory: Yes: Chest Non-Tender, Lungs Clear, Normal Breath Sounds Neck: Yes: No masses,lesions,Nodules, Trachea in good position Breast: Yes: Breast Exam Deferred Cardiology: Yes: Regular Rhythm, Regular Rate, S1, S2, Tachycardia, Systolic Murmur Abdominal: Yes: Normal Bowel Sounds, Soft Back: Yes: Normal Inspection Musculoskeletal: Yes: Joint swelling (left ankle), Other (limping left LE) Extremities: Yes: Other (left ankle w/ BLAIR bandage from hospital ER) Neurological: Yes: Motor Strength 5/5 Integumentary: Yes: Normal Color, Dry, Warm - Diagnostic (1) Alcohol dependence Current Visit: No Status: Chronic (2) Essential hypertension Current Visit: No Status: Chronic [facility] Breath Alcohol Content Breath Alcohol Content: 0 Urine Drug Screen - Results Drug Screen Negative: No Urine Drug Screen Results: BZO-Benzodiazepines Inpatient Rehab Admission - Initial Determination Are CD services needed?: Yes Free of communicable disease: Yes Not in need of hospitalization: Yes - Rehab Admission Criteria Previous failed treatment: Yes Poor recovery environment: Yes Comorbidities: Yes Lacks judgement: Yes Patient is meeting Inpatient Rehab admission criteria:: Yes
[2018-10-28] MEDS ORDERED: ACETAMINOPHEN 325 MG TABLET (FP) PO PRN (15:05)
[2018-10-28] MEDS ORDERED: MAGNESIUM HYDROX 2400MG/30ML ORAL SUSPENSION 30 ML CUP PO PRN (15:05)
[2018-10-28] MEDS ORDERED: P-EPHED 60MG/TRIPROLIDI 2.5MG TABLET PO PRN (15:05)
[2018-10-28] MEDS ORDERED: MAGNESIUM CITRATE 300 ML BOTTLE PO PRN (15:05)
[2018-10-28] MEDS ORDERED: MAG HYDROX/AL HYDROX/SIMETH 30 ML UNIT-DOSE CUP PO PRN (15:05)
[2018-10-28] MEDS ORDERED: MENTHOL/PHENOL 1 EACH UD MM PRN (15:05)
[2018-10-28] MEDS ORDERED: hydrOXYzine PAMOATE 25 MG CAPSULE (FP) PO PRN (15:05)
[2018-10-28] MEDS ORDERED: cloNIDine HCL 0.1 MG TABLET PO PRN (15:07)
[2018-10-28] MEDS: IBUPROFEN 400 MG TABLET (FP) PO PRN (21:38)
[2018-10-28] MEDS: ASPIRIN COATED 81 MG TABLET.EC PO SCH (21:38)
[2018-10-28] MEDS: ATORVASTATIN CA 40 MG TABLET (FP) PO SCH (21:39)
[2018-10-28] MEDS: THIAMINE HCL 100 MG TABLET (FP) PO SCH (21:39)
--- NOTE | 2018-10-29 06:02 | HP ---
Psychiatrist Admission - Data Date of interview: 10/29/18 Admission source: [facility] Identifying data: This is the third [facility] admission for this 57 years old male, father of 2 sons, unemployed on SSD, homeless Medical History: Significant for hypertension, dyslipidemia, coronary artery disease with 3 stents placement and history of heart surgery for CABG. Psychiatric History: Patient is well known to engineering writer by virtue of previous encounter while admitted to this facility. Reports that his first psychiatric contact was in 2013 when he was admitted to [facility], diagnosed with depression and treated with Zoloft. Reports [address] [facility] and most recently in 2016 to [facility] for depression. Pt. reports that depression stemmed from many deaths in his family(2 brothers, father and mother). Pt reports that he never followed up with [facility] care due to inadequate medical insurance coverage. However he gets medication refills through ED. He saw Dr Tee recently while in detox in this facility on 10/22/18 and he was prescribed Zoloft 50 mg po daily Denies previous suicide attempt. At present, reports feeling anxious and sleeping poorly Physical/Sexual Abuse/Trauma History: Denies history of emotional, physical or sexual abuse as well as DV relationship. No service Additional Comment: Reports history of one previous midemeanor arrest 20 years ago on charges of stolen property Vital Signs: Vital Signs - 24 hr 10/28/18 10/28/18 10/29/18 14:22 23:08 01:12 Temperature 97.6 F 97.4 F L Pulse Rate 93 H 80 Respiratory 18 18 18 Rate Blood Pressure 164/113 H 152/85 10/29/18 03:30 Temperature Pulse Rate Respiratory 18 Rate Blood Pressure Allergies/Adverse Reactions: Allergies Allergy/AdvReac Type Severity Reaction Status Date / Time No Known Drug Allergies Allergy Verified 10/28/18 17:08 Date of last physical exam: 10/28/18 Concur with the findings of this exam: Yes - Substance Abuse/Tx History Hx Alcohol Use: Yes Hx Substance Use: Yes (Began crystal meth at 58, consumes $50 daily. Last used on 10/17/18) Substance Use Type: Alcohol (Started drinking alcohol at age22, consumes 3-4x 24oz of beer daily. Last drank on ) Hx Substance Use Treatment: Yes (3 previous inpt detox & 2 inpt rehab admissions @ [facility]) Mental Status Exam - Mental Status Exam Alert and Oriented to: Time, Place, Person Cognitive Function: Fair Patient Appearance: Well Groomed Mood: Anxious Affect: Appropriate Patient Behavior: Cooperative Speech Pattern: Clear Voice Loudness: Normal Thought Process: Goal Oriented Thought Disorder: Not Present Hallucinations: Denies Suicidal Ideation: Denies Homicidal Ideation: Denies Insight/Judgement: Fair Sleep: Poorly Appetite: Good Muscle strength/Tone: Normal Gait/Station: Normal Psychiatric Findings - Problem List ([place] 1, 2,3) (1) Alcohol dependence Current Visit: No Status: Acute (2) Amphetamine dependence Current Visit: Yes Status: Acute (3) MDD (major depressive disorder), recurrent episode, moderate Current Visit: No Status: Chronic (4) Substance-induced anxiety disorder Current Visit: No Status: Acute (5) Substance-induced sleep disorder Current Visit: No Status: Acute (6) Coronary arteriosclerosis Current Visit: No Status: Chronic (7) Essential hypertension Current Visit: No Status: Chronic (8) Hypercholesterolemia Current Visit: No Status: Chronic (9) Hx of CABG Current Visit: Yes Status: Resolved - Initial Treatment Plan Initial Treatment Plan: 1) Continue Zoloft 50 mg po daily. 2) Start Melatonin 5 mg po HS prn for insomnia. 3) Monitor progress
[2018-10-29] MEDS: amLODIPine BESYLATE 5 MG TABLET (FP) PO SCH (10:21)
[2018-10-29] MEDS: ASPIRIN COATED 81 MG TABLET.EC PO SCH (10:21)
[2018-10-29] MEDS: PRENATAL VITAMINS W/ FOLIC ACID TABLET (FP) PO SCH (10:21)
[2018-10-29] MEDS: guaiFENesin/D-METHORPHAN HB 10 ML UNIT-DOSE CUPS PO PRN ×2 (10:26→21:39)
[2018-10-29] MEDS: SERTRALINE HCL 50 MG TABLET (FP) PO SCH (11:54)
[2018-10-29 19:11] LABS: URINE APPEARANCE CLEAR; URINE BILIRUBIN NEGATIVE (<2.0 mg/dL); URINE COLOR YELLOW; URINE GLUCOSE (UA) NEGATIVE (NEGATIVE); URINE KETONE NEGATIVE (NEGATIVE); URINE LEUK ESTERASE NEGATIVE (NEGATIVE); URINE NITRITE NEGATIVE (NEGATIVE); URINE PROTEIN NEGATIVE (NEGATIVE)
[2018-10-29] MEDS: THIAMINE HCL 100 MG TABLET (FP) PO SCH (21:39)
[2018-10-29] MEDS: ATORVASTATIN CA 40 MG TABLET (FP) PO SCH (21:39)
[2018-10-29] MEDS: IBUPROFEN 400 MG TABLET (FP) PO PRN (21:39)
[2018-10-29] MEDS: MELATONIN 5 MG TABLETS PO PRN (21:39)
[2018-10-30] MEDS: ASPIRIN COATED 81 MG TABLET.EC PO SCH (10:56)
[2018-10-30] MEDS: SERTRALINE HCL 50 MG TABLET (FP) PO SCH (10:56)
[2018-10-30] MEDS: amLODIPine BESYLATE 5 MG TABLET (FP) PO SCH (10:56)
[2018-10-30] MEDS: PRENATAL VITAMINS W/ FOLIC ACID TABLET (FP) PO SCH (10:56)
[2018-10-30] MEDS: guaiFENesin/D-METHORPHAN HB 10 ML UNIT-DOSE CUPS PO PRN (14:30)
[2018-10-30] MEDS: ATORVASTATIN CA 40 MG TABLET (FP) PO SCH (21:43)
[2018-10-30] MEDS: MELATONIN 5 MG TABLETS PO PRN (21:43)
[2018-10-30] MEDS: IBUPROFEN 400 MG TABLET (FP) PO PRN (21:43)
[2018-10-30] MEDS: THIAMINE HCL 100 MG TABLET (FP) PO SCH (21:43)
[2018-10-31] MEDS: ASPIRIN COATED 81 MG TABLET.EC PO SCH (10:27)
[2018-10-31] MEDS: SERTRALINE HCL 50 MG TABLET (FP) PO SCH (10:28)
[2018-10-31] MEDS: amLODIPine BESYLATE 5 MG TABLET (FP) PO SCH (10:28)
[2018-10-31] MEDS: guaiFENesin/D-METHORPHAN HB 10 ML UNIT-DOSE CUPS PO PRN ×2 (10:28→21:50)
[2018-10-31] MEDS: PRENATAL VITAMINS W/ FOLIC ACID TABLET (FP) PO SCH (10:28)
[2018-10-31] MEDS: MELATONIN 5 MG TABLETS PO PRN (21:50)
[2018-10-31] MEDS: THIAMINE HCL 100 MG TABLET (FP) PO SCH (21:50)
[2018-10-31] MEDS: ATORVASTATIN CA 40 MG TABLET (FP) PO SCH (21:50)
[2018-10-31] MEDS: IBUPROFEN 400 MG TABLET (FP) PO PRN (21:50)
[2018-11-01] MEDS: ASPIRIN COATED 81 MG TABLET.EC PO SCH (10:34)
[2018-11-01] MEDS: amLODIPine BESYLATE 5 MG TABLET (FP) PO SCH (10:34)
[2018-11-01] MEDS: SERTRALINE HCL 50 MG TABLET (FP) PO SCH (10:34)
[2018-11-01] MEDS: PRENATAL VITAMINS W/ FOLIC ACID TABLET (FP) PO SCH (10:34)
[2018-11-01] MEDS: ATORVASTATIN CA 40 MG TABLET (FP) PO SCH (21:52)
[2018-11-01] MEDS: MELATONIN 5 MG TABLETS PO PRN (21:52)
[2018-11-01] MEDS: guaiFENesin/D-METHORPHAN HB 10 ML UNIT-DOSE CUPS PO PRN (21:52)
[2018-11-01] MEDS: THIAMINE HCL 100 MG TABLET (FP) PO SCH (21:52)
[2018-11-02] MEDS: SERTRALINE HCL 50 MG TABLET (FP) PO SCH (10:30)
[2018-11-02] MEDS: amLODIPine BESYLATE 5 MG TABLET (FP) PO SCH (10:30)
[2018-11-02] MEDS: PRENATAL VITAMINS W/ FOLIC ACID TABLET (FP) PO SCH (10:30)
[2018-11-02] MEDS: ASPIRIN COATED 81 MG TABLET.EC PO SCH (10:30)
[2018-11-02] MEDS: IBUPROFEN 400 MG TABLET (FP) PO PRN (21:57)
[2018-11-02] MEDS: guaiFENesin/D-METHORPHAN HB 10 ML UNIT-DOSE CUPS PO PRN (21:58)
[2018-11-02] MEDS: THIAMINE HCL 100 MG TABLET (FP) PO SCH (21:58)
[2018-11-02] MEDS: ATORVASTATIN CA 40 MG TABLET (FP) PO SCH (21:58)
[2018-11-03] MEDS ORDERED: PT OWN MED DRAWER 7, Y5N ONE (08:37)
[2018-11-03] MEDS: ASPIRIN COATED 81 MG TABLET.EC PO SCH (10:31)
[2018-11-03] MEDS: PRENATAL VITAMINS W/ FOLIC ACID TABLET (FP) PO SCH (10:31)
[2018-11-03] MEDS: SERTRALINE HCL 50 MG TABLET (FP) PO SCH (10:31)
[2018-11-03] MEDS: amLODIPine BESYLATE 5 MG TABLET (FP) PO SCH (10:31)
[2018-11-03] MEDS: guaiFENesin/D-METHORPHAN HB 10 ML UNIT-DOSE CUPS PO PRN (10:32)
--- NOTE | 2018-11-03 10:56 | PN ---
S Progress Note Note: Patient complains of sleeping poorly despite taking Melatonin 5 mg at bedtime. Requests that medication dosage be increased to 10 mg
[2018-11-03] MEDS: THIAMINE HCL 100 MG TABLET (FP) PO SCH (21:49)
[2018-11-03] MEDS: ATORVASTATIN CA 40 MG TABLET (FP) PO SCH (21:49)
[2018-11-03] MEDS: MELATONIN 5 MG TABLETS PO PRN (21:49)
[2018-11-04] MEDS: SERTRALINE HCL 50 MG TABLET (FP) PO SCH (10:40)
[2018-11-04] MEDS: PRENATAL VITAMINS W/ FOLIC ACID TABLET (FP) PO SCH (10:40)
[2018-11-04] MEDS: amLODIPine BESYLATE 5 MG TABLET (FP) PO SCH (10:40)
[2018-11-04] MEDS: ASPIRIN COATED 81 MG TABLET.EC PO SCH (10:40)
[2018-11-04] MEDS: ATORVASTATIN CA 40 MG TABLET (FP) PO SCH (21:49)
[2018-11-04] MEDS: THIAMINE HCL 100 MG TABLET (FP) PO SCH (21:51)
[2018-11-04] MEDS: guaiFENesin/D-METHORPHAN HB 10 ML UNIT-DOSE CUPS PO PRN (21:51)
[2018-11-05] MEDS: amLODIPine BESYLATE 5 MG TABLET (FP) PO SCH (10:53)
[2018-11-05] MEDS: PRENATAL VITAMINS W/ FOLIC ACID TABLET (FP) PO SCH (10:53)
[2018-11-05] MEDS: SERTRALINE HCL 50 MG TABLET (FP) PO SCH (10:53)
[2018-11-05] MEDS: ASPIRIN COATED 81 MG TABLET.EC PO SCH (10:53)
[2018-11-05] MEDS: guaiFENesin/D-METHORPHAN HB 10 ML UNIT-DOSE CUPS PO PRN (21:43)
[2018-11-05] MEDS: THIAMINE HCL 100 MG TABLET (FP) PO SCH (21:44)
[2018-11-05] MEDS: ATORVASTATIN CA 40 MG TABLET (FP) PO SCH (21:44)
[2018-11-05] MEDS: IBUPROFEN 400 MG TABLET (FP) PO PRN (21:44)
[2018-11-06] MEDS: SERTRALINE HCL 50 MG TABLET (FP) PO SCH (10:36)
[2018-11-06] MEDS: amLODIPine BESYLATE 5 MG TABLET (FP) PO SCH (10:36)
[2018-11-06] MEDS: PRENATAL VITAMINS W/ FOLIC ACID TABLET (FP) PO SCH (10:36)
[2018-11-06] MEDS: ASPIRIN COATED 81 MG TABLET.EC PO SCH (10:36)
[2018-11-06] MEDS: THIAMINE HCL 100 MG TABLET (FP) PO SCH (21:46)
[2018-11-06] MEDS: MELATONIN 5 MG TABLETS PO PRN (21:47)
[2018-11-06] MEDS: ATORVASTATIN CA 40 MG TABLET (FP) PO SCH (21:47)
[2018-11-06] MEDS: guaiFENesin/D-METHORPHAN HB 10 ML UNIT-DOSE CUPS PO PRN (21:48)
[2018-11-06] MEDS: IBUPROFEN 400 MG TABLET (FP) PO PRN (21:48)
[2018-11-07] MEDS: ASPIRIN COATED 81 MG TABLET.EC PO SCH (10:15)
[2018-11-07] MEDS: PRENATAL VITAMINS W/ FOLIC ACID TABLET (FP) PO SCH (10:16)
[2018-11-07] MEDS: amLODIPine BESYLATE 5 MG TABLET (FP) PO SCH (10:16)
[2018-11-07] MEDS: SERTRALINE HCL 50 MG TABLET (FP) PO SCH (10:16)
[2018-11-07] MEDS: ATORVASTATIN CA 40 MG TABLET (FP) PO SCH (21:35)
[2018-11-07] MEDS: THIAMINE HCL 100 MG TABLET (FP) PO SCH (21:35)
[2018-11-07] MEDS: MELATONIN 5 MG TABLETS PO PRN (21:35)
[2018-11-08 06:56] VITALS: TEMP 97.4
[2018-11-08 10:04] VITALS: BP 135/84; PULSE 81
[2018-11-08] MEDS: amLODIPine BESYLATE 5 MG TABLET (FP) PO SCH (10:14)
[2018-11-08] MEDS: SERTRALINE HCL 50 MG TABLET (FP) PO SCH (10:14)
[2018-11-08] MEDS: PRENATAL VITAMINS W/ FOLIC ACID TABLET (FP) PO SCH (10:14)
[2018-11-08] MEDS: ASPIRIN COATED 81 MG TABLET.EC PO SCH (10:14)
--- NOTE | 2018-11-08 18:56 | PN ---
[facility] Progress [facility] Note: Patient decided to sign out AMA today.He didnt meet his treatment goals and will continue to address his issues on outpatient basis .patient will continue current medications.scripts or 30 days provided See staff notes for details.
== END 2018-11-08 18:55 | disposition left against medical advice (07) | DRG 894 ==
LOC: YASAS 13:48 → Y3W 17:25
PROVIDERS: ADMIT Psychiatry & Neurology Psychiatry; ATTEND Psychiatry & Neurology Psychiatry
PROC: HZ42ZZZ Group Counseling for Substance Abuse Treatment, Cognitive-Behavioral (ICD-10-PCS; principal; 2018-10-28)
DX: F10.20 Alcohol dependence, uncomplicated (principal); F15.20 Other stimulant dependence, uncomplicated; F33.1 Major depressive disorder, recurrent, moderate; F19.280 Other psychoactive substance dependence with psychoactive substance-induced anxiety disorder; F19.282 Other psychoactive substance dependence with psychoactive substance-induced sleep disorder; I10 Essential (primary) hypertension; I25.10 Atherosclerotic heart disease of native coronary artery without angina pectoris; E78.5 Hyperlipidemia, unspecified; Z95.1 Presence of aortocoronary bypass graft; Z95.5 Presence of coronary angioplasty implant and graft; Z79.82 Long term (current) use of aspirin
CPT/HCPCS: 81003; J0735